=== PATIENT | female | born 1985 | race Caucasian/White ===

== ENCOUNTER 2021-07-12 02:53 | Outpatient (CLI) | payer MEDICAID, SELFPAY ==
[2021-07-14 16:17] LABS: c-ANCA Negative (Negative); p-ANCA Negative (Negative)
== END 2021-07-12 02:54 | disposition home or self-care (01) ==
LOC: LBO 02:53
PROVIDERS: PCP Family Medicine; Visit Provider Physician Assistant
DX: J34.89 Other specified disorders of nose and nasal sinuses (principal)
CPT/HCPCS: 36415; 86255

== ENCOUNTER 2021-08-26 07:26 | Outpatient (CLI) | payer MEDICAID, SELFPAY ==
--- OUTSIDE RECORDS SUMMARY | 2021-08-26 07:30 | XMS_ITS ---
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 Medications Name Status Start Date Stop Date ? ? amoxicillin 500 mg capsule Completed 02/08/201402/18 1 (one) Capsule: every 8 hours amoxicillin 875 mg-potassium Completed ? clavulanate 125 mg tablet azithromycin 250 mg tablet Completed ? 06/09 2 tablets day 1 followed by 1 tab on days 2 and 3. Bactrim DS 800 mg-160 mg tablet Completed 05/02/2012 05/12/2012 2 (two) Tablet: every 12 hours for 10 days Bactroban 2 % topical ointment Completed 05/02/2012 1 1 Ointment: 1 application by topical route every 12 hours cephalexin 500 mg capsule Completed ? 2020 1 Cap: QID for 7 days ciprofloxacin 250 mg tablet Completed ? 02/23 2 tabs now citalopram 10 mg tablet Completed 12/27/2006 12/28/19 07 1 (one) Tablet: Daily Depakote ER 250 mg tablet,extended release Completed 06/1506/15/2006 1 (one) Tab SR 24HR: bedtime Depo-Provera 150 mg/mL intramuscular syringe Completed ? 02/19/2018 Inject 1 mL every 3 months by intramuscular route. Dilantin Extended 100 mg capsule Completed 02/14/2006 02/21/2006 3 (three) Capsule: bedtime doxepin 10 mg capsule Completed ? 08/04/2021 Take 1 capsule every day by oral route at bedtime. fluoxetine 10 mg capsule Completed 11/09/2005 006 1 Capsule: daily Gardasil (PF) [id number]-92byp-20mcg/0.5mL intramuscular payne spension Completed 06/03/2007 07/02/2008 1 (one) vial: as directed hydrocodone 5 mg-acetaminophen Completed ? 0 02/14/2018 325 mg tablet ibuprofen 800 mg tablet Active 03/31/2021 Not avai lable Take 1 tablet 3 times a day by oral route for 10 days. levetiracetam Active ? Not available 500 mg BID lidocaine 4 % topical patch Active 03/31/2021 Not available Apply 1 patch every day by topical route as needed. lorazepam 0.5 mg tablet Completed 02/14/2006 02/15/20 06 1 (one) Tablet: every 8 hours medroxyprogesterone 150 mg/mL intramuscular suspension Active ? Not available Inject 1 mL every 3 months by intramuscular route. melatonin 10 mg tablet Active ? Not avail able Take 1 tablet every day by oral route at bedtime. Nasonex 50 mcg/actuation [place] Completed 02/28/2012 1 2 (two) spray(s): daily rovuvtzr-[id number]-pfmhkjgf Completed ? 03/24 3.5 mg/mL-10,000 unit/mL-0.1% eye drops ondansetron 4 mg Completed ? 02/19/2018 disintegrating tablet oxycodone 5 mg tablet Completed 03/31/2021 05/05/2021 Take 1 tablet every 6 hours by oral route as needed. pantoprazole 20 mg tablet,delayed release Completed 202005/05/2021 Take 1 tablet every day by oral route in the morning for 14 day s. penicillin V potassium 500 mg tablet Completed 04/01/2012 04/01/2012 1 Tablet: every six hours Percocet 5 mg-325 mg tablet Completed 04/18/200603/25 1-2 Tablet: every 4-6 hours as needed for pain permethrin 1 % topical liquid Completed 01/15/2014 1 (one) Lotion: apply to clean, damp lyman ir. Let sit for ten minutes then rinse. May repeat x1 in one week if needed. phenazopyridine 95 mg tablet Completed 03/31/202108/2021 2 tabs now ProAir HFA 90 mcg/actuation aerosol inhaler Active 04/2021 Not available INHALE 1-2 PUFFS (180 MCG) BY INHALATION ROUTE EVERY 4-6 HOURS NEEDED sertraline 25 mg tablet Completed 11/15/2007 06/03/20 08 1 (one) Tablet: Daily sumatriptan 50 mg tablet Active 03/31/2021 Not aditya ilable Take 1 tablet by oral route as directed. take one at onset of headache. Symbicort 160 mcg-4.5 Active ? Not availa ble mcg/actuation HFA aerosol inhaler benzonatate 100 mg capsule Active ? Not a vailable Topamax 50 mg tablet Active ? Not availab le Take 1 tablet twice a day by oral route for 30 days. topiramate 25 mg tablet Active 03/31/2021 Not avai lable Take 1 tablet every day by oral route in the evening. triamcinolone acetonide 0.1 % Completed ? topical cream TriNessa (28) 0.18 mg(7)/0.215 mg(7)/0.25 mg(7)-35 mcg table t Completed 11/09/2005 02/14/2006 1 Tablet: daily Vistaril 50 mg capsule Completed 06/03/2008 9 1 (one) Capsule: bid prn Vortex Holding Chamber Completed ? 8 Xopenex HFA 45 mcg/actuation aerosol inhaler Completed 07/201611/04/2015 2 (two) inhalation(s) 2 minutes apart: Every 6 -8 hours as need ed Zithromax 500 mg tablet Completed 02/15/2012 02/22/20 12 1 (one) Tablet: Daily, see below Zofran Active 03/31/2021 Not available as needed Notes: 06/13/21 verbal review Problems Name Status Onset Date Source ? Abdominal Pain Active 03/31/2021 ? Insomnia Active 04/04/2021 ? Obesity Unknown ? History Acute Bronchitis Unknown ? History Asthma Active ? ? Cough Unknown ? History Surveillance of [place] Contraception Unknown ? History Done Adult Health Examination Unknown ? History Gynecologic Examination Unknown ? History Evaluation Procedure Unknown ? History Procedure by Method Unknown ? History Umbilical Hernia Unknown ? History Procedures Date Name Performed by ? 07/25/2021 Colonoscopy Information not avai lable Notes: [facility], polyp removed, 5 year f/ u recommended 03/31/2021 Laparoscopy Diagnostic Information not a vailable Notes: lysis of adhesions 11/25/2020 Laparoscopic Ventral Hernia Repair (Surg ) Information not available Notes: lap ventral incisional hernia repair with mesh 03/14/2018 Hernia Repair Umbilical Information not available Notes: laparoscopic 10/20/2017 Appendectomy Information not avai lable 02/03/2007 Delivery Information not avai lable 09/29/2020 MRI, Brain, W/wo Contrast [facility] (Internal) [address], [place] [id number] (Work Place) 02/16/2021 NM, Hepatobiliary Scan, W/ CCK [facility] Radiology (Internal) [address] [place] [id number] (Work Place) Results Lab Results Date Name Specimen Result Interpretation Description Value Range Status Address ? 05/28/2021 CBC W/ BLD ? Wbc 6.1 10*3/uL 5.0-10.0 Final [place] Auto Diff 10*3/uL [facility] L ab (Internal) : [address] t ? ? BLD ? Rbc 4.56 10*6/uL 4.10-5.30 Final N orth 10*6/uL [facility] L ab (Internal) : [address] t ? ? BLD ? Hgb 14.0 g/dL 12.0-16.0 Final Nort h g/dL [facility] L ab (Internal) : [address] t ? ? BLD ? Hct 43.0 % 37.0-47.0 Final [facility] L ab (Internal) : [address] t ? ? BLD ? Mcv 94.3 fL 80.0-96.0 Final [facility] L ab (Internal) : [address] t ? ? BLD ? Mch 30.7 pg 26.0-32.0 Final [facility] L ab (Internal) : [address] t ? ? BLD ? Mchc 32.6 g/dL 31.0-35.0 Final Nort h g/dL [facility] (Internal[facility] : [address] t ? ? BLD ? Rdw 13.6 % 11.5-14.5 Final [facility] L ab (Internal) : [address] t ? ? BLD ? Plt 249 10*3/uL 130-450 Final Nort h 10*3/uL [facility] L ab (Internal) : [address] ? ? BLD ? Anc 3.48 10*3/uL ? Final Nort h [facility] L ab (Internal) : [address] ? ? BLD ? Nlr 1.80 0.00-3.20 Final [facility] L ab (Internal) : [address] ? ? BLD ? Neutro 57.3 % 40.0-75.0 Final [facility] L ab (Internal) : [address] t ? ? BLD ? Lymph 31.8 % 20.0-50.0 Final [facility] L ab (Internal) : [address] ? ? BLD ? [place] 8.9 % 2.0-10.0 Final [facility] L ab (Internal) : [address] t ? ? BLD ? Eos 1.2 % 1.0-6.0 % Final [facility] L ab (Internal) : [address] t ? ? BLD ? Baso 0.5 % 0.0-1.0 % Final [facility] L ab (Internal) : [address] ? ? BLD ? Ig 0.3 % 0.0-0.9 % Final [facility] L ab (Internal) : [address] t 05/28/2021 CMP, S ? g/r 101 mg/dL 74-106 Final Nor th Serum or mg/dL [facility] L ab (Internal) : [address] t ? ? S ? Bun 11 mg/dL 7-17 Final North mg/dL [facility] L ab (Internal) : [address] t ? ? S ? Crea 0.80 mg/dL 0.52-1.04 Final Nor th mg/dL [facility] L ab (Internal) : [address] t ? ? S ? Ca 9.1 mg/dL 8.4-10.2 Final [place] mg/dL [facility] (Internal) : [address] t ? ? S ? Na 142 mmol/L 137-145 Final North mmol/L [facility] L ab (Internal) : [address] t ? ? S ? K 3.6 mmol/L 3.5-5.1 Final [place] mmol/L [facility] L ab (Internal) : [address] t ? ? S ? Cl 106 mmol/L 98-107 Final [place] mmol/L [facility] L ab (Internal) : [address] ? ? S ? Tco2 25.0 mmol/L 22.0-30.0 Final No rth mmol/L [facility] (Internal) : [address] t ? ? S ? Tp 7.6 g/dL 6.3-8.2 Final [place] g/dL [facility] L ab (Internal) : [address] t ? ? S ? Alb 4.3 g/dL 3.5-5.0 Final [place] g/dL [facility] L ab (Internal) : [address] t ? ? S ? Tbil 0.3 mg/dL 0.2-1.3 Final North mg/dL [facility] L ab (Internal) : [address] t ? ? S ? Alp 72 U/L 50-136 Final [place] U/L [facility] L ab (Internal) : [address] ? ? S ? Alt 24 U/L 9-52 U/L Final [place] (Sgpt) [facility] L ab (Internal) : [address] ? ? S ? Ast 28 U/L 14-36 U/L Final [place] (Sgot) [facility] L ab (Internal) : [address] t 04/08/2021 CBC W/ BLD ? Wbc 5.4 10*3/uL 5.0-10.0 Final [place] Auto Diff 10*3/uL [facility] (Internal[facility] : [address] t ? ? BLD ? Rbc 4.30 10*6/uL 4.10-5.30 Final N orth 10*6/uL [facility] Hospital L ab (Internal) : [address] ? ? BLD ? Hgb 13.3 g/dL 12.0-16.0 Final Nort h g/dL [facility] L ab (Internal) : [address] ? ? BLD ? Hct 40.7 % 37.0-47.0 Final [place] [facility] L ab (Internal) : [address] ? ? BLD ? Mcv 94.7 fL 80.0-96.0 Final [facility] L ab (Internal) : [address] ? ? BLD ? Mch 30.9 pg 26.0-32.0 Final [place] pg [facility] L ab (Internal) : [address] ? ? BLD ? Mchc 32.7 g/dL 31.0-35.0 Final Nort h g/dL [facility] L ab (Internal) : [address] ? ? BLD ? Rdw 13.5 % 11.5-14.5 Final [facility] Hospital L ab (Internal) : [address] ? ? BLD ? Plt 218 10*3/uL 130-450 Final Nort h 10*3/uL [facility] L ab (Internal) : [address] ? ? BLD ? Anc 3.33 10*3/uL ? Final Nort h [facility] L ab (Internal) : [address] ? ? BLD ? Nlr 2.02 0.00-3.20 Final [facility] L ab (Internal) : [address] ? ? BLD ? Neutro 61.3 % 40.0-75.0 Final [facility] L ab (Internal) : [address] ? ? BLD ? Lymph 30.4 % 20.0-50.0 Final [facility] L ab (Internal) : [address] ? ? BLD ? [place] 6.8 % 2.0-10.0 Final [facility] L ab (Internal) : [address] ? ? BLD Low Eos 0.7 % 1.0-6.0 % Final [facility] L ab (Internal) : [address] ? ? BLD ? Baso 0.6 % 0.0-1.0 % Final [facility] L ab (Internal) : [address] ? ? BLD ? Ig 0.2 % 0.0-0.9 % Final [facility] L ab (Internal) : [address] 04/08/2021 D-dimer, PLASMA ? Dimq 0.33 mg/L 0.00-0.50 Final [place] Quant, mg/L [facility] L ab (Internal) : [address] 04/08/2021 CMP, S ? g/r 97 mg/dL 74-106 Final Nort h Serum or mg/dL [facility] L ab (Internal) : [address] t ? ? S ? Bun 12 mg/dL 7-17 Final [place] mg/dL [facility] L ab (Internal) : [address] t ? ? S ? Crea 0.80 mg/dL 0.52-1.04 Final Nor th mg/dL [facility] L ab (Internal) : [address] t ? ? S ? Ca 9.5 mg/dL 8.4-10.2 Final [place] mg/dL [facility] L ab (Internal) : [address] t ? ? S ? Na 143 mmol/L 137-145 Final [place] mmol/L [facility] L ab (Internal) : [address] t ? ? S ? K 3.7 mmol/L 3.5-5.1 Final [place] mmol/L [facility] L ab (Internal) : [address] t ? ? S High Cl 111 mmol/L 98-107 Final [place] mmol/L [facility] L ab (Internal) : [address] ? ? S Low Tco2 21.0 mmol/L 22.0-30.0 Final No rth mmol/L [facility] L ab (Internal) : [address] ? ? S ? Tp 7.6 g/dL 6.3-8.2 Final [place] g/dL [facility] (Internal) : [address] t ? ? S ? Alb 4.4 g/dL 3.5-5.0 Final [place] g/dL [facility] L ab (Internal) : [address] t ? ? S ? Tbil 0.5 mg/dL 0.2-1.3 Final [place] mg/dL [facility] L ab (Internal) : [address] t ? ? S ? Alp 59 U/L 50-136 Final [place] U/L [facility] L ab (Internal) : [address] t ? ? S ? Alt 18 U/L 9-52 U/L Final [place] (Sgpt) [facility] L ab (Internal) : [address] t ? ? S ? Ast 27 U/L 14-36 U/L Final [place] (Sgot) [facility] L ab (Internal) : [address] 04/08/2021 Troponin S ? Trop <0.06 NG/mL 0.00-0.06 Fin al North I, Serum NG/mL [facility] Hosp[facility] l Lab (Internal) : [address] 04/08/2021 EKG Done ? No ? ? ? Nort h by ED observat [facility] L ab recorded (Interna l): . [address] 04/08/2021 EKG Done ? No ? ? ? Nort h by ED [facility] L ab recorded (Interna l): . [address] 04/04/2021 Lipid S ? Chol 181 mg/dL 50-200 Final Nor th Panel, mg/dL [facility] Serum Hospital L ab (Internal) : [address] t ? ? S ? Trig 124 mg/dL 10-150 Final [place] mg/dL [facility] L ab (Internal) : [address] ? ? S ? Hdl 44 mg/dL 40-60 Final [place] mg/dL [facility] L ab (Internal) : [address] ? ? S ? Ldl 112 mg/dL 0-130 Final [place] mg/dL [facility] Hospital L ab (Internal) : [address] 03/31/2021 Type + BLD ? Abo A ? Final [facility], [facility] Blood Hospital L ab (Internal) : [address] ? ? BLD ? Rh positive ? Final [facility] L ab (Internal) : [address] ? ? BLD ? Ab Scrn negative negative Final Nort [facility] L ab (Internal) : [address] 03/15/2021 Rapid THRT ? Final microbiology ? Final [place] Strep results [facility] Lab Throat (Internal) : [address] 03/02/2021 Cytology, TISS ? Report (see below) ? Phyllis l [place] Non-gynec Country ological, Hospita l Lab Unspecifi (Overhauler al): ed [address] Spec[address] [place] [address] orestuardo 03/02/2021 Urinalysi Urine ? Color Yellow ? ? P_u rology: s, clean [address] Medical Dipstick, [address], [facility] ? ? Urine ? Appeara Clear ? ? P_urolog y: clean nce 41 [employer] [facility] ? ? Urine ? Glucose Normal ? ? P_urolog y: clean [facility] ? ? Urine ? Bilirub Negative ? ? P_urol ogy: clean in [address] [employer] [facility] ? ? Urine ? Ketones Negative ? ? P_urol ogy: clean [facility] ? ? Urine ? Specifi 1.025 ? ? P_urolog y: clean c 41 Medical catch [place] [facility] ? ? Urine ? Blood Trace ? ? P_urology: clean [facility] ? ? Urine ? Ph 6.5 ? ? P_urology: clean [facility] ? ? Urine ? Protein Trace ? ? P_urolog y: clean 41 Medical [place], [place] ? ? Urine ? Urobili 4 ? ? P_urolog y: clean nogen 41 [facility] ? ? Urine ? Nitrite negative ? ? P_urol ogy: clean [facility] ? ? Urine ? Leukocy Negative ? ? P_urol ogy: clean te 41 Medical catch [place] [facility] 01/31/2021 Bladder ? Date 01/31/21 8:11 ? ? P_urology: Scan and Time 41 Medic al (PROC) [facility] [address], [place] ? ? ? Amount 102 ml ? ? P_urology : in [address] [facility] [address], [place] 01/31/2021 Urinalysi Urine ? Color Tatianna ? ? P_u rology: s, clean [address], catch [address], Micro [place] ? ? Urine ? Appeara Slightly ? ? P_urol ogy: clean nce Cloudy [address] [facility] [address], [place] ? ? Urine ? Glucose Normal ? ? P_urolog y: clean [address] [facility] [address], [place] ? ? Urine ? Bilirub Negative ? ? P_urol ogy: clean in [address] [facility] [address], [place] ? ? Urine ? Ketones Negative ? ? P_urol ogy: clean [address] [facility] [address], [place] ? ? Urine ? Specifi 1.020 ? ? P_urolog y: clean c 41 Medical catch [place] [facility] [address], [place] ? ? Urine ? Blood Negative ? ? P_urolog y: clean [address] [facility] [address], [place] ? ? Urine ? Ph 7.0 ? ? P_urology: clean [address] [facility] [address], [place] ? ? Urine ? Protein Negative ? ? P_urol ogy: clean [address] [facility] [address], [place] ? ? Urine ? Urobili 1 ? ? P_urolog y: clean nogen [address] [facility] [address], [place] ? ? Urine ? Nitrite negative ? ? P_urol ogy: clean [address] [facility] [address], [place] ? ? Urine ? Leukocy Small ? ? P_urolog y: clean te [address], [place] 01/27/2021 Urinalysi UR ? UA-colo yellow pale Final N orth s, r yellow Country Dipstick, Hospita l Lab Reflex (Internal) : Micro [address] ? ? UR ? UA-appe clear clear Final [facility] ab (Internal) : [address] ? ? UR ? UA-spec 1.020 1.003-1.0 Final [place] Grav 35 [facility] L ab (Internal) : [address] ? ? UR ? UA-pH 6.5 [pH] 4.6-8.0 Final [place] [pH] [facility] ab (Internal) : [address] ? ? UR ABNORM UA-leuk small negative Final [place] AL Est [facility] ab (Internal) : [address] ? ? UR ? UA-nitr negative negative Final Nort h ite [facility] ab (Internal) : [address] ? ? UR ? UA-prot negative negative Final Nort h [facility] ab (Internal) : [address] ? ? UR ? UA-gluc negative negative Final Nort h [facility] ab (Internal) : [address] ? ? UR ? UA-keto negative negative Final Nort h ne [facility] ab (Internal) : [address] ? ? UR ? UA-urob normal normal Final [facility] ab (Internal) : [address] ? ? UR ? UA-bili negative negative Final Nort [facility] ab (Internal) : [address] ? ? UR ABNORM UA-bloo trace negative Final [facility] ab (Internal) : [address] 01/27/2021 Urinalysi UR ABNORM UA-WBC 5-10 [hpf] 0-3 [hpf] Fi nal North s, [facility] Hospita l Lab ic (Internal) : [address] ? ? UR ABNORM UA-RBC 5-10 [hpf] 0-2 [hpf] Final No rth [facility] ab (Internal) : [address] ? ? UR ? UA-bact rare [hpf] none seen Final N orth eria [hpf] [facility] ab (Internal) : [address] ? ? UR ? UA-epit rare [hpf] none seen Final N fredy helial [hpf] [facility] ab (Internal) : [address] ? ? UR ABNORM UA-mucu rare [hpf] none seen Final N fredy AL s [hpf] [facility] ab (Internal) : [address] 01/27/2021 Culture UR ? Final microbiology ? Final [place] ([place] results Country Count), Hospital Lab Urine (Internal) : [address] 01/05/2021 Urinalysi UR ? UA-colo yellow pale Final N orth s, r yellow [facility] Dipstick, Hospita l Lab Reflex (Internal) : Micro [address] t ? ? UR ? UA-appe clear clear Final [facility] ab (Internal) : [address] ? ? UR ? UA-spec >=1.030 1.003-1.0 Final Nort h Grav 35 [facility] ab (Internal) : [address] ? ? UR ? UA-pH 5.5 [pH] 4.6-8.0 Final [place] [pH] [facility] ab (Internal) : [address] ? ? UR ? UA-leuk negative negative Final Nort h [facility] ab (Internal) : [address] ? ? UR ? UA-nitr negative negative Final Nort h ite [facility] ab (Internal) : [address] ? ? UR ? UA-prot negative negative Final Nort [facility] ab (Internal) : [address] ? ? UR ? UA-gluc negative negative [facility] ab (Internal) : [address] ? ? UR ABNORM UA-keto trace negative Final [facility] ab (Internal) : [address] ? ? UR ? UA-urob normal normal Final [facility] ab (Internal) : [address] ? ? UR ? UA-bili negative negative Final Nort [facility] ab (Internal) : [address] ? ? UR ABNORM UA-bloo trace negative Final [facility] ab (Internal) : [address] 01/05/2021 UR ? Hcgu negative negative Final [facility], [facility] Hospital L ab (Internal) : [address] 01/05/2021 Urinalysi UR ABNORM UA-WBC 5-10 [hpf] 0-3 [hpf] Fi nal [place], [place] [facility]osp[facility] Lab ic (Internal) : [address] ? ? UR ? UA-RBC 0-2 [hpf] 0-2 [hpf] Final [facility] ab (Internal) : [address] ? ? UR ABNORM UA-bact moderate none seen Final Nor th AL eria [hpf] [hpf] [facility] ab (Internal) : [address] ? ? UR ABNORM UA-epit few [hpf] none seen Final No rth AL helial [hpf] [facility] ab (Internal) : [address] [place] ? ? UR ABNORM UA-mucu few [hpf] none seen Final No rth AL s [hpf] [facility] ab (Internal) : [address] ? ? UR ? Hyaline rare [hpf] ? Final Nort h [facility] ab (Internal) : [address] 01/05/2021 Culture UR ? Final microbiology ? Final [place] ([place] results Country [facility]), Hospital Lab Urine (Internal) : [address] 12/27/2020 Urinalysi UR ? UA-colo yellow pale Final N orth s, r yellow Country Dipstick, Hospita l Lab Reflex (Internal) : Micro [address] ? ? UR ABNORM UA-appe hazy clear Final [facility] ab (Internal) : [address] ? ? UR ? UA-spec >=1.030 1.003-1.0 Final Nort h Grav 35 [facility] ab (Internal) : [address] ? ? UR ? UA-pH 5.5 [pH] 4.6-8.0 Final [place] [pH] [facility] ab (Internal) : [address] t ? ? UR ABNORM UA-leuk trace negative Final [facility] ab (Internal) : [address] ? ? UR ? UA-nitr negative negative Final Nort h ite [facility] ab (Internal) : [address] t ? ? UR ? UA-prot negative negative Final Nort h [facility] ab (Internal) : [address] ? ? UR ? UA-gluc trace negative Final [facility] ab (Internal) : [address] t ? ? UR ? UA-keto negative negative Final Nort h [facility] ab (Internal) : [address] t ? ? UR ? UA-urob normal normal Final [facility] ab (Internal) : [address] t ? ? UR ? UA-bili negative negative Final Nort [facility] ab (Internal) : [address] t ? ? UR ABNORM UA-bloo small negative Final [facility] ab (Internal) : [address] t 12/27/2020 Urinalysi UR ABNORM UA-WBC 10-25 [hpf] 0-3 [hpf] F inal [place] s, [facility] Lab ic (Internal) : [address] t ? ? UR ABNORM UA-RBC 5-10 [hpf] 0-2 [hpf] Final No rth [facility] ab (Internal) : [address] t ? ? UR ? UA-bact rare [hpf] none seen Final N orth eria [hpf] [facility] ab (Internal) : [address] t ? ? UR ? UA-epit rare [hpf] none seen Final N orth helial [hpf] [facility] ab (Internal) : [address] t ? ? UR ABNORM UA-mucu moderate none seen Final Nor [facility] [hpf] [hpf] [facility] ab (Internal) : [address] 12/27/2020 CBC W/ BLD ? Wbc 5.5 10*3/uL 5.0-10.0 Final [place] Auto Diff 10*3/uL [facility] ab (Internal) : [address] t ? ? BLD ? Rbc 4.44 10*6/uL 4.10-5.30 Final N orth 10*6/uL [facility] ab (Internal) : [address] t ? ? BLD ? Hgb 13.4 g/dL 12.0-16.0 Final Nort h g/dL [facility] ab (Internal) : [address], [place] ? ? BLD ? Hct 41.1 % 37.0-47.0 Final [facility] ab (Internal) : [address] ? ? BLD ? Mcv 92.6 fL 80.0-96.0 Final [facility] L ab (Internal) : [address] ? ? BLD ? Mch 30.2 pg 26.0-32.0 Final [facility] ab (Internal) : [address] , [place] ? ? BLD ? Mchc 32.6 g/dL 31.0-35.0 [facility] ab (Internal) : [address] ? ? BLD ? Rdw 13.6 % 11.5-14.5 Final [facility] L ab (Internal) : [address] ? ? BLD ? Plt 265 10*3/uL 130-450 Final Nort h 10*3/uL [facility] L ab (Internal) : [address] ? ? BLD ? Anc 2.73 10*3/uL ? Final Nort h [facility] Hospital L ab (Internal) : [address] ? ? BLD ? Nlr 1.29 0.00-3.20 Final [facility] L ab (Internal) : [address] ? ? BLD ? Neutro 49.5 % 40.0-75.0 Final [facility] L ab (Internal) : [address] ? ? BLD ? Lymph 38.5 % 20.0-50.0 Final [facility] L ab (Internal) : [address] [place] ? ? BLD ? [place] 8.7 % 2.0-10.0 Final [facility] L ab (Internal) : [address] ? ? BLD ? Eos 2.4 % 1.0-6.0 % Final [facility] L ab (Internal) : [address] [place] ? ? BLD ? Baso 0.7 % 0.0-1.0 % Final [facility] ab (Internal) : [address] [place] ? ? BLD ? Ig 0.2 % 0.0-0.9 % Final [facility] ab (Internal) : [address] 12/27/2020 UR ? Hcgu negative negative Final [place] Test, [facility] Urine Hospital L ab (Internal) : [address] 12/27/2020 Culture UR ? Final microbiology ? Final [place] ([place] results Country Count), Hospital Lab Urine (Internal) : [address] 12/27/2020 CMP, S High g/r 110 mg/dL 74-106 Final Nor th Serum or mg/dL [facility] Plasma Hospital L ab (Internal) : [address] t ? ? S ? Bun 16 mg/dL 7-17 Final North mg/dL [facility] ab (Internal) : [address] t ? ? S ? Crea 0.70 mg/dL 0.52-1.04 Final Nor th mg/dL [facility] L ab (Internal) : [address] t ? ? S ? Ca 8.8 mg/dL 8.4-10.2 Final North mg/dL [facility] Hospital L ab (Internal) : [address] t ? ? S ? Na 141 mmol/L 137-145 Final [place] mmol/L [facility] L ab (Internal) : [address] t ? ? S ? K 3.8 mmol/L 3.5-5.1 Final [place] mmol/L [facility] L ab (Internal) : [address] t ? ? S High Cl 109 mmol/L 98-107 Final [place] mmol/L [facility] L ab (Internal) : [address] t ? ? S Low Tco2 20.0 mmol/L 22.0-30.0 Final No rth mmol/L [facility] L ab (Internal) : [address] t ? ? S ? Tp 7.2 g/dL 6.3-8.2 Final North g/dL [facility] L ab (Internal) : [address] t ? ? S ? Alb 4.2 g/dL 3.5-5.0 Final North g/dL [facility] L ab (Internal) : [address] t ? ? S ? Tbil 0.3 mg/dL 0.2-1.3 Final [place] mg/dL [facility] L ab (Internal) : [address] t ? ? S ? Alp 63 U/L 50-136 Final [place] U/L [facility] L ab (Internal) : [address] t ? ? S ? Alt 16 U/L 9-52 U/L Final [place] (Sgpt) [facility] ab (Internal) : [address] t ? ? S ? Ast 23 U/L 14-36 U/L Final [place] (Sgot) [facility] ab (Internal) : [address] t 12/27/2020 CRP, High S ? Rcrp 0.10 mg/dL 0.10-0.30 Fin al [place] Sensitivi mg/dL [facility] ty, Serum Hospita l Lab or Plasma (Overhauler al): [address] t 12/09/2020 CBC W/ BLD ? Wbc 7.2 10*3/uL 5.0-10.0 Final [place] Auto Diff 10*3/uL [facility] Hospital L ab (Internal) : [address] t ? ? BLD ? Rbc 4.48 10*6/uL 4.10-5.30 Final N orth 10*6/uL [facility] Hospital L ab (Internal) : [address] t ? ? BLD ? Hgb 13.4 g/dL 12.0-16.0 Final Nort h g/dL [facility] L ab (Internal) : [address] t ? ? BLD ? Hct 41.1 % 37.0-47.0 Final [place] % [facility] L ab (Internal) : [address] t ? ? BLD ? Mcv 91.7 fL 80.0-96.0 Final [facility] L ab (Internal) : [address] t ? ? BLD ? Mch 29.9 pg 26.0-32.0 Final [place] pg [facility] Hospital L ab (Internal) : [address] t ? ? BLD ? Mchc 32.6 g/dL 31.0-35.0 Final Nort h g/dL [facility] Hospital L ab (Internal) : [address], [place] ? ? BLD ? Rdw 13.3 % 11.5-14.5 Final [facility] L ab (Internal) : [address] ? ? BLD ? Plt 275 10*3/uL 130-450 Final Nort h 10*3/uL [facility] Hospital L ab (Internal) : [address] t ? ? BLD ? Anc 4.75 10*3/uL ? Final Nort h [facility] Hospital L ab (Internal) : [address] ? ? BLD ? Nlr 2.68 0.00-3.20 Final [facility] L ab (Internal) : [address] ? ? BLD ? Neutro 65.8 % 40.0-75.0 Final [facility] L ab (Internal) : [address] ? ? BLD ? Lymph 24.4 % 20.0-50.0 Final [facility] L ab (Internal) : [address] ? ? BLD ? [place] 8.1 % 2.0-10.0 Final [facility] L ab (Internal) : [address] ? ? BLD ? Eos 1.2 % 1.0-6.0 % Final [facility] L ab (Internal) : [address] ? ? BLD ? Baso 0.4 % 0.0-1.0 % Final [facility] L ab (Internal) : [address] t ? ? BLD ? Ig 0.1 % 0.0-0.9 % Final [facility] L ab (Internal) : [address] t 12/09/2020 BMP, S ? g/r 99 mg/dL 74-106 Final Nort h Serum or mg/dL [facility] Plasma Hospital L ab (Internal) : [address] t ? ? S ? Bun 15 mg/dL 7-17 Final [place] mg/dL [facility] Hospital L ab (Internal) : [address] t ? ? S ? Crea 0.70 mg/dL 0.52-1.04 Final Nor th mg/dL [facility] Hospital L ab (Internal) : [address] t ? ? S ? Ca 9.4 mg/dL 8.4-10.2 Final [place] mg/dL [facility] Hospital L ab (Internal) : [address] t ? ? S ? Na 142 mmol/L 137-145 Final [place] mmol/L [facility] Hospital L ab (Internal) : [address] t ? ? S ? K 4.1 mmol/L 3.5-5.1 Final [place] mmol/L [facility] Hospital L ab (Internal) : [address] t ? ? S ? Cl 104 mmol/L 98-107 Final [place] mmol/L [facility] L ab (Internal) : [address] t ? ? S ? Tco2 27.0 mmol/L 22.0-30.0 Final No rth mmol/L [facility] Hospital L ab (Internal) : [address] 11/25/2020 Type + BLD ? Abo A ? Final [facility] L ab (Internal) : [address] ? ? BLD ? Rh positive ? Final [facility] ab (Internal) : [address] ? ? BLD ? Ab Scrn negative negative Final Nort [facility] L ab (Internal) : [address] 04/13/2020 SARS CoV SWAB ? 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 ? SWAB ? Perform the broad ? Final [facility] Hospital L ab (Internal) : [address] 09/05/2019 Urinalysi UR - UA-colo pale yellow pale Fin al [place] s, r yellow Country Dipstick, Hospita l Lab Reflex (Internal) : Micro [address] t ? ? UR - UA-appe clear clear Final [facility] (Internal) : [address] ? ? UR - UA-spec 1.015 1.003-1.0 Final [place] Grav 35 [facility] Hospital L ab (Internal) : [address] t ? ? UR - UA-pH 5.5 [pH] 4.6-8.0 Final [place] [pH] [facility] ab (Internal) : [address] t ? ? UR - UA-leuk negative negative Final Nort h Est [facility] L ab (Internal) : [address] t ? ? UR - UA-nitr negative negative Final Nort h ite [facility] L ab (Internal) : [address] t ? ? UR - UA-prot negative negative Final Nort h [facility] L ab (Internal) : [address] ? ? UR - UA-gluc negative negative Final Nort h [facility] ab (Internal) : [address] ? ? UR - UA-keto negative negative Final Nort h ne [facility] ab (Internal) : [address] t ? ? UR - UA-urob normal normal Final [facility] ab (Internal) : [address] t ? ? UR - UA-bili negative negative Final [facility] ab (Internal) : [address] t ? ? UR ABNORM UA-bloo large negative Final [facility] ab (Internal) : [address] t 09/05/2019 Urinalysi UR - UA-WBC 0-3 [hpf] 0-3 [hpf] Fin al [place] s, [facility] Lab ic (Internal) : [address] t ? ? UR ABNORM UA-RBC 10-25 [hpf] 0-2 [hpf] Final N orth AL [facility] ab (Internal) : [address] t ? ? UR - UA-bact rare [hpf] none seen Final N fredy delcid [hpf] [facility] ab (Internal) : [address] t ? ? UR - UA-epit rare [hpf] none seen Final N fredy simon [hpf] [facility] ab (Internal) : [address] t ? ? UR - UA-mucu none seen none seen Final No rth s [hpf] [hpf] [facility] ab (Internal) : [address] 09/05/2019 CBC W/ BLD - Wbc 6.4 10*3/uL 5.0-10.0 Final [place] Diff 10*3/uL [facility] Hospital L ab (Internal) : [address] ? ? BLD - Rbc 4.30 10*6/uL 4.10-5.30 Final N orth 10*6/uL [facility] ab (Internal) : [address] ? ? BLD - Hgb 13.7 g/dL 12.0-16.0 Final Nort h g/dL [facility] ab (Internal) : [address] ? ? BLD - Hct 39.9 % 37.0-47.0 Final North % [facility] ab (Internal) : [address] ? ? BLD - Mcv 92.8 fL 80.0-96.0 Final North fL [facility] ab (Internal) : [address] ? ? BLD - Mch 31.9 pg 26.0-32.0 Final North pg [facility] ab (Internal) : [address] ? ? BLD - Mchc 34.3 g/dL 31.0-35.0 Final Nort h g/dL [facility] ab (Internal) : [address] ? ? BLD - Rdw 13.3 % 11.5-14.5 Final North % [facility] Hospital L ab (Internal) : [address] ? ? BLD - Plt 224 10*3/uL 130-450 Final Nort h 10*3/uL [facility] ab (Internal) : [address] ? ? BLD - Anc 4.37 10*3/uL ? Final Nort h [facility] ab (Internal) : [address] ? ? BLD - Neutro 68.7 % 40.0-75.0 Final North % [facility] Hospital L ab (Internal) : [address] ? ? BLD - Lymph 24.1 % 20.0-50.0 Final North [facility] Hospital L ab (Internal) : [address] ? ? BLD - [place] 6.0 % 2.0-10.0 Final North [facility] Hospital L ab (Internal) : [address] ? ? BLD Low Eos 0.3 % 1.0-6.0 % Final [facility] L ab (Internal) : [address] t ? ? BLD - Baso 0.6 % 0.0-1.0 % Final [facility] L ab (Internal) : [address] t ? ? BLD - Ig 0.3 % 0.0-0.9 % Final [facility] L ab (Internal) : [address] t 09/05/2019 CMP, S - g/r 91 mg/dL 74-106 Final Nort h Serum or mg/dL [facility] Plasma Hospital L ab (Internal) : [address] t ? ? S - Bun 10 mg/dL 7-17 Final North mg/dL [facility] L ab (Internal) : [address] t ? ? S - Crea 0.60 mg/dL 0.52-1.04 Final Nor th mg/dL [facility] Hospital L ab (Internal) : [address] ? ? S - Ca 9.2 mg/dL 8.4-10.2 Final [place] mg/dL [facility] ab (Internal) : [address] ? ? S - Na 141 mmol/L 137-145 Final [place] mmol/L [facility] Hospital L ab (Internal) : [address] ? ? S - K 3.7 mmol/L 3.5-5.1 Final [place] mmol/L [facility] Hospital L ab (Internal) : [address] t ? ? S High Cl 108 mmol/L 98-107 Final [place] mmol/L [facility] Hospital L ab (Internal) : [address] ? ? S - Tco2 23.0 mmol/L 22.0-30.0 Final No rth mmol/L [facility] ab (Internal) : [address] t ? ? S - Tp 7.5 g/dL 6.3-8.2 Final [place] g/dL [facility] ab (Internal) : [address] t ? ? S - Alb 4.1 g/dL 3.5-5.0 Final [place] g/dL [facility] ab (Internal) : [address], [place] ? ? S - Tbil 0.5 mg/dL 0.2-1.3 Final [place] mg/dL [facility] Hospital L ab (Internal) : [address] ? ? S - Alp 72 U/L 50-136 Final [place] U/L [facility] Hospital L ab (Internal) : [address] ? ? S - Alt 32 U/L 9-52 U/L Final [place] (Sgpt) [facility] L ab (Internal) : [address] ? ? S - Ast 26 U/L 14-36 U/L Final [place] (Sgot) [facility] Hospital L ab (Internal) : [address] 04/10/2019 Streptoco THRT - Final microbiology ? Phyllis l [place] ccus results [facility] Group a, Hospital Lab Culture, (Interna l): Throat [address] 04/10/2019 Rapid ? Strep negative ? ? P_nc Primary Strep Care [facility]: 186 Throat Medical [facility] 04/08/2019 Rapid THRT - Final microbiology ? Final [place] Strep results [facility], Hospital Lab Throat (Internal) : [address] 12/12/2018 Lipid S - Chol 189 mg/dL 50-200 Final Nor th Panel, mg/dL [facility] L ab (Internal) : [address] ? ? S - Trig 113 mg/dL 10-150 Final [place] mg/dL [facility] Hospital L ab (Internal) : [address] ? ? S - Hdl 55 mg/dL 40-60 Final [place] mg/dL [facility] Hospital L ab (Internal) : [address] ? ? S - Ldl 111 mg/dL 0-130 Final [place] mg/dL [facility] Hospital L ab (Internal) : [address] 02/14/2018 Pap Test, MISC - Hpv see report ? Final [place] Thinprep, [facility] Cervical Hospital Lab (Internal) : [address] ? ? MISC - Pap see report ? Final [facility] Hospital L ab (Internal) : [address] ? ? MISC - Report (added) ? Corrected [place] results Country below Hospital L ab (Internal) : [address] 11/11/2017 Venipunct BLD ? Venpn* ? ? Final No rth ure [facility] L ab (Internal) : [address] 11/11/2017 Culture, UR ? Final microbiology ? Final [place] Urine results [facility] ab (Internal) : [address] 11/11/2017 Urinalysi UR ABNORM UA-WBC 5-10 [hpf] 0-3 [hpf] Fi nal [place] s, [place] [facility] Microscop Hospita l Lab ic (Internal) : [address] t ? ? UR ABNORM UA-RBC 5-10 [hpf] 0-2 [hpf] Final No rth AL [facility] L ab (Internal) : [address] t ? ? UR ABNORM UA-bact few [hpf] none seen Final No rth AL eria [hpf] [facility] ab (Internal) : [address] t ? ? UR ABNORM UA-epit few [hpf] none seen Final No rth AL helial [hpf] [facility] ab (Internal) : [address] t ? ? UR ABNORM UA-mucu many [hpf] none seen Final N orth AL s [hpf] [facility] ab (Internal) : [address] 11/11/2017 Urinalysi UR ? UA-colo yellow pale Final N orth s, r yellow [facility] Dipstick, Hospita l Lab Reflex (Internal) : Micro [address] t ? ? UR ABNORM UA-appe hazy clear Final [facility] ab (Internal) : [address] t ? ? UR ? UA-spec >=1.030 1.003-1.0 Final Nort h Grav 35 [facility] L ab (Internal) : [address] t ? ? UR ? UA-pH 5.5 [pH] 4.6-8.0 Final North [pH] [facility] ab (Internal) : [address] t ? ? UR ABNORM UA-leuk trace negative Final North AL Est [facility] L ab (Internal) : [address] t ? ? UR ? UA-nitr negative negative Final Nort h ite [facility] Hospital L ab (Internal) : [address] t ? ? UR ? UA-prot negative negative Final Nort h [facility] Hospital L ab (Internal) : [address] t ? ? UR ? UA-gluc negative negative Final Nort h [facility] L ab (Internal) : [address] t ? ? UR ? UA-keto negative negative Final Nort h ne [facility] L ab (Internal) : [address] t ? ? UR ? UA-urob normal normal Final [facility] L ab (Internal) : [address] t ? ? UR ? UA-bili negative negative Final Nort h [facility] L ab (Internal) : [address] t ? ? UR ABNORM UA-bloo small negative Final [place] AL d [facility] ab (Internal) : [address] 11/11/2017 Influenza NASAL ? Final microbiology ? Phyllis l [place] (A+B) Ag, results Countr y Qual, Hospital L ab Rapid, (Internal) : Nose [address] t 11/11/2017 Lipase, S ? Lip 50 U/L 23-300 Final [place] Serum or U/L [facility] Plasma Hospital L ab (Internal) : [address] t 11/11/2017 CMP, S ? g/r 98 mg/dL 74-106 Final Nort h Serum or mg/dL [facility] Hospital L ab (Internal) : [address] t ? ? S ? Bun 7 mg/dL 7-17 Final [place] mg/dL [facility] Hospital L ab (Internal) : [address] t ? ? S ? Crea 0.70 mg/dL 0.52-1.04 Final Nor th mg/dL [facility] Hospital L ab (Internal) : [address] t ? ? S ? Ca 9.1 mg/dL 8.4-10.2 Final [place] mg/dL [facility] L ab (Internal) : [address] t ? ? S ? Na 142 mmol/L 137-145 Final [place] mmol/L [facility] L ab (Internal) : [address] t ? ? S ? K 3.9 mmol/L 3.5-5.1 Final [place] mmol/L [facility] L ab (Internal) : [address] t ? ? S ? Cl 107 mmol/L 98-107 Final [place] mmol/L [facility] L ab (Internal) : [address] t ? ? S ? Tco2 22.0 mmol/L 22.0-30.0 Final No rth mmol/L [facility] L ab (Internal) : [address] t ? ? S ? Tp 7.1 g/dL 6.3-8.2 Final [place] g/dL [facility] L ab (Internal) : [address] t ? ? S ? Alb 4.0 g/dL 3.5-5.0 Final [place] g/dL [facility] L ab (Internal) : [address] t ? ? S ? Tbil 0.4 mg/dL 0.2-1.3 Final [place] mg/dL [facility] L ab (Internal) : [address] t ? ? S ? Alp 65 U/L 50-136 Final [place] U/L [facility] L ab (Internal) : [address] t ? ? S High Alt 53 U/L 9-52 U/L Final [place] (Sgpt) [facility] L ab (Internal) : [address] t ? ? S ? Ast 34 U/L 14-36 U/L Final [place] (Sgot) [facility] L ab (Internal) : [address] t 11/11/2017 CBC W/ BLD Low Wbc 4.0 10*3/uL 5.0-10.0 Final [place] Auto Diff 10*3/uL [facility] Hospital L ab (Internal) : [address] t ? ? BLD ? Rbc 4.21 10*6/uL 4.10-5.30 Final N orth 10*6/uL [facility] L ab (Internal) : [address] t ? ? BLD ? Hgb 12.5 g/dL 12.0-16.0 Final Nort h g/dL [facility] L ab (Internal) : [address] ? ? BLD ? Hct 38.5 % 37.0-47.0 Final [facility] % [facility] L ab (Internal) : [address] [place] ? ? BLD ? Mcv 91.4 fL 80.0-96.0 Final [facility] Hospital L ab (Internal) : [address] ? ? BLD ? Mch 29.7 pg 26.0-32.0 Final [facility] Hospital L ab (Internal) : [address] ? ? BLD ? Mchc 32.5 g/dL 31.0-35.0 Final Nort h g/dL [facility] Hospital L ab (Internal) : [address] ? ? BLD ? Rdw 13.5 % 11.5-14.5 Final [facility] L ab (Internal) : [address] ? ? BLD ? Plt 236 10*3/uL 130-450 Final Nort h 10*3/uL [facility] Hospital L ab (Internal) : [address] ? ? BLD ? Anc 2.15 10*3/uL ? Final Nort [facility] Hospital L ab (Internal) : [address] ? ? BLD ? Neutro 53.7 % 40.0-75.0 Final [facility] L ab (Internal) : [address] ? ? BLD ? Lymph 32.9 % 20.0-50.0 Final [facility] L ab (Internal) : [address] ? ? BLD High [place] 10.7 % 2.0-10.0 Final [facility] L ab (Internal) : [address] ? ? BLD ? Eos 2.0 % 1.0-6.0 % Final [facility] Hospital L ab (Internal) : [address] ? ? BLD ? Baso 0.5 % 0.0-1.0 % Final [facility] Hospital L ab (Internal) : [address] ? ? BLD ? Ig 0.2 % 0.0-0.9 % Final [facility] L ab (Internal) : [address] 10/23/2017 Venipunct BLD ? Venpn* ? ? Final No rth ure [facility] L ab (Internal) : [address] t 10/23/2017 CBC W/ BLD ? Wbc 6.8 10*3/uL 5.0-10.0 Final [place] Diff 10*3/uL [facility] L ab (Internal) : [address] t ? ? BLD Low Rbc 3.54 10*6/uL 4.10-5.30 Final N orth 10*6/uL [facility] L ab (Internal) : [address] t ? ? BLD Low Hgb 10.5 g/dL 12.0-16.0 Final Nort h g/dL [facility] L ab (Internal) : [address] t ? ? BLD Low Hct 32.9 % 37.0-47.0 Final [facility] L ab (Internal) : [address] t ? ? BLD ? Mcv 92.9 fL 80.0-96.0 Final [facility] L ab (Internal) : [address] t ? ? BLD ? Mch 29.7 pg 26.0-32.0 Final [facility] L ab (Internal) : [address] t ? ? BLD ? Mchc 31.9 g/dL 31.0-35.0 Final Nort h g/dL [facility] L ab (Internal) : [address] t ? ? BLD ? Rdw 13.3 % 11.5-14.5 Final [facility] L ab (Internal) : [address] t ? ? BLD ? Plt 287 10*3/uL 130-450 Final Nort h 10*3/uL [facility] L ab (Internal) : [address] t ? ? BLD ? Anc 4.45 10*3/uL ? Final Nort h [facility] L ab (Internal) : [address] t ? ? BLD ? Neutro 65.9 % 40.0-75.0 Final [facility] L ab (Internal) : [address] t ? ? BLD ? Lymph 24.6 % 20.0-50.0 Final [facility] L ab (Internal) : [address] ? ? BLD ? [place] 7.3 % 2.0-10.0 Final North % [facility] L ab (Internal) : [address] t ? ? BLD ? Eos 1.0 % 1.0-6.0 % Final [facility] L ab (Internal) : [address] t ? ? BLD ? Baso 0.3 % 0.0-1.0 % Final [facility] L ab (Internal) : [address] t ? ? BLD ? Ig 0.9 % 0.0-0.9 % Final [facility] L ab (Internal) : [address] 10/23/2017 BMP, PLASMA High g/r 115 mg/dL 74-106 Final Nor th Serum or mg/dL [facility] L ab (Internal) : [address] t ? ? PLASMA Low Bun 3 mg/dL 7-17 Final North mg/dL [facility] L ab (Internal) : [address] t ? ? PLASMA ? Crea 0.70 mg/dL 0.52-1.04 Final Nor th mg/dL [facility] L ab (Internal) : [address] t ? ? PLASMA Low Ca 8.1 mg/dL 8.4-10.2 Final North mg/dL [facility] L ab (Internal) : [address] t ? ? PLASMA ? Na 138 mmol/L 137-145 Final North mmol/L [facility] L ab (Internal) : [address] t ? ? PLASMA ? K 3.9 mmol/L 3.5-5.1 Final [place] mmol/L [facility] L ab (Internal) : [address] t ? ? PLASMA ? Cl 106 mmol/L 98-107 Final [place] mmol/L [facility] L ab (Internal) : [address] t ? ? PLASMA ? Tco2 24.0 mmol/L 22.0-30.0 Final No rth mmol/L [facility] L ab (Internal) : [address] 10/22/2017 Venipunct BLD ? Venpn* ? ? Final No rth ure [facility] L ab (Internal) : [address] 10/22/2017 Neutrophi BLD ? Anc-man 7.24 10*3/uL ? Fi nal [place] l Count, ual [facility] Lab (Anc), (Internal) : Blood [address] 10/22/2017 Different BLD High Polys 78 % 40-75 % Final No rth ial, [facility] Lab Blood (Internal) : [address] t ? ? BLD ? Bands 0 % 0-5 % Final [facility] L ab (Internal) : [address] ? ? BLD Low Lymphs 16 % 20-50 % Final [facility] L ab (Internal) : [address] t ? ? BLD ? [place] 6 % 2-10 % Final [facility] L ab (Internal) : [address] t ? ? BLD ? Eos 0 % 0-6 % Final [facility] L ab (Internal) : [address] t ? ? BLD ? Baso 0 % 0-1 % Final [facility] L ab (Internal) : [address] t ? ? BLD ? Atyp 0 % ? Final [facility] Hospital L ab (Internal) : [address] t ? ? BLD ? Plts, adequate adequate Final [facility] Hospital L ab (Internal) : [address] t ? ? BLD ? RBC normal normal Final [facility] L ab (Internal) : [address] 10/22/2017 CBC W/ BLD ? Wbc 9.3 10*3/uL 5.0-10.0 Final [place] Auto Diff 10*3/uL [facility] L ab (Internal) : [address] t ? ? BLD Low Rbc 3.89 10*6/uL 4.10-5.30 Final N orth 10*6/uL [facility] L ab (Internal) : [address] t ? ? BLD Low Hgb 11.5 g/dL 12.0-16.0 Final Nort h g/dL [facility] L ab (Internal) : [address] t ? ? BLD Low Hct 35.8 % 37.0-47.0 Final [facility] : [address] t ? ? BLD ? Mcv 92.0 fL 80.0-96.0 Final [facility] fL [facility] ([facility] : [address] t ? ? BLD ? Mch 29.6 pg 26.0-32.0 Final North pg [facility] (Internal) : [address] t ? ? BLD ? Mchc 32.1 g/dL 31.0-35.0 Final Nort h g/dL [facility] (Internal) : [address] t ? ? BLD ? Rdw 13.2 % 11.5-14.5 Final North % [facility] (Internal) : [address] t ? ? BLD ? Plt 292 10*3/uL 130-450 Final Nort h 10*3/uL [facility] ([facility] : [address] t 10/22/2017 BMP, PLASMA High g/r 152 mg/dL 74-106 Final Nor th Serum or mg/dL [facility] (Internal) : [address] t ? ? PLASMA Low Bun 6 mg/dL 7-17 Final North mg/dL [facility] (Internal) : [address] t ? ? PLASMA ? Crea 0.60 mg/dL 0.52-1.04 Final Nor th mg/dL [facility] (Internal) : [address] t ? ? PLASMA Low Ca 8.3 mg/dL 8.4-10.2 Final [place] mg/dL [facility] (Internal) : [address] t ? ? PLASMA Low Na 135 mmol/L 137-145 Final [place] mmol/L [facility] L ab (Internal) : [address] ? ? PLASMA ? K 4.0 mmol/L 3.5-5.1 Final [place] mmol/L [facility] ([facility]) : [address] ? ? PLASMA ? Cl 104 mmol/L 98-107 Final [place] mmol/L [facility] L ab (Internal) : [address] t ? ? PLASMA ? Tco2 24.0 mmol/L 22.0-30.0 Final No rth mmol/L [facility] L ab (Internal) : [address] t 10/21/2017 Venipunct BLD ? Venpn* ? ? Final No rth ure [facility] L ab (Internal) : [address] 10/21/2017 Neutrophi BLD ? Anc-man 10.45 ? Final N orth l Count, ual 10*3/uL [facility] (Anc[facility] (Internal) : Blood [address] t 10/21/2017 Different BLD High Polys 88 % 40-75 % Final No rth ial, [facility] Lab Blood (Internal) : [address] t ? ? BLD ? Bands 0 % 0-5 % Final [facility] L ab (Internal) : [address] t ? ? BLD Low Lymphs 7 % 20-50 % Final [facility] L ab (Internal) : [address] t ? ? BLD ? [place] 5 % 2-10 % Final [facility] L ab (Internal) : [address] t ? ? BLD ? Eos 0 % 0-6 % Final [facility] L ab (Internal) : [address] t ? ? BLD ? Baso 0 % 0-1 % Final [facility] L ab (Internal) : [address] t ? ? BLD ? Atyp 0 % ? Final [facility] L ab (Internal) : [address] t ? ? BLD ? Plts, adequate adequate Final [facility] L ab (Internal) : [address] t ? ? BLD ? RBC normal normal Final [facility] L ab (Internal) : [address] t 10/21/2017 CBC W/ BLD High Wbc 11.9 10*3/uL 5.0-10.0 Final [place] Auto Diff 10*3/uL [facility] Hospital L ab (Internal) : [address] t ? ? BLD Low Rbc 3.63 10*6/uL 4.10-5.30 Final N orth 10*6/uL [facility] L ab (Internal) : [address] t ? ? BLD Low Hgb 10.6 g/dL 12.0-16.0 Final Nort h g/dL [facility] L ab (Internal) : [address] t ? ? BLD Low Hct 33.5 % 37.0-47.0 Final North % [facility] L ab (Internal) : [address] ? ? BLD ? Mcv 92.3 fL 80.0-96.0 Final [facility] L ab (Internal) : [address] ? ? BLD ? Mch 29.2 pg 26.0-32.0 Final [place] pg [facility] L ab (Internal) : [address] t ? ? BLD ? Mchc 31.6 g/dL 31.0-35.0 Final Nort h g/dL [facility] L ab (Internal) : [address] ? ? BLD ? Rdw 12.9 % 11.5-14.5 Final [facility] L ab (Internal) : [address] ? ? BLD ? Plt 225 10*3/uL 130-450 Final Nort h 10*3/uL [facility] L ab (Internal) : [address] 10/21/2017 BMP, PLASMA High g/r 163 mg/dL 74-106 Final Nor th Serum or mg/dL [facility] Hospital L ab (Internal) : [address] ? ? PLASMA Low Bun 4 mg/dL 7-17 Final North mg/dL [facility] L ab (Internal) : [address] ? ? PLASMA ? Crea 0.60 mg/dL 0.52-1.04 Final Nor th mg/dL [facility] L ab (Internal) : [address] t ? ? PLASMA Low Ca 8.2 mg/dL 8.4-10.2 Final [place] mg/dL [facility] L ab (Internal) : [address] ? ? PLASMA ? Na 137 mmol/L 137-145 Final [place] mmol/L [facility] L ab (Internal) : [address] t ? ? PLASMA ? K 4.2 mmol/L 3.5-5.1 Final [place] mmol/L [facility] L ab (Internal) : [address] t ? ? PLASMA ? Cl 105 mmol/L 98-107 Final [place] mmol/L [facility] L ab (Internal) : [address] t ? ? PLASMA ? Tco2 25.0 mmol/L 22.0-30.0 Final No rth mmol/L [facility] L ab (Internal) : [address] t 10/20/2017 Pathology TISS ? Report results ? Final N orth Study below [facility] ab (Internal) : [address] t 10/20/2017 Culture, UR ? Final microbiology ? Final [place] Urine results [facility] ab (Internal) : [address] 10/20/2017 UR ? Hcgu negative negative Final [place] Test, [facility] L ab (Internal) : [address] t 10/20/2017 Urinalysi UR ABNORM UA-WBC 3-5 [hpf] 0-3 [hpf] Fin al [place] s, [place] [facility] ic (Internal) : [address] t ? ? UR ABNORM UA-RBC 3-5 [hpf] 0-2 [hpf] Final Nor [facility] L ab (Internal) : [address] t ? ? UR ? UA-bact none seen none seen Final No rth eria [hpf] [hpf] [facility] ab (Internal) : [address] t ? ? UR ? UA-epit rare [hpf] none seen Final N orth helial [hpf] [facility] ab (Internal) : [address] ? ? UR ? UA-mucu none seen none seen Final No rth s [hpf] [hpf] [facility] ab (Internal) : [address] t 10/20/2017 Urinalysi UR ? UA-colo yellow pale Final N orth s, r yellow [facility] Lab Reflex (Internal) : Micro [address] t ? ? UR ? UA-appe clear clear Final [facility] L ab (Internal) : [address] t ? ? UR ? UA-spec <=1.005 1.003-1.0 Final Nort h Grav 35 [facility] L ab (Internal) : [address] t ? ? UR ? UA-pH 6.5 [pH] 4.6-8.0 Final [place] [pH] [facility] L ab (Internal) : [address] t ? ? UR ? UA-leuk negative negative Final Nort h Est [facility] L ab (Internal) : [address] t ? ? UR ? UA-nitr negative negative Final Nort h ite [facility] L ab (Internal) : [address] t ? ? UR ? UA-prot negative negative Final Nort h [facility] ab (Internal) : [address] ? ? UR ? UA-gluc negative negative Final [facility] ab (Internal) : [address] ? ? UR ABNORM UA-keto trace negative Final [facility] L ab (Internal) : [address] ? ? UR ABNORM UA-urob positive normal Final [facility] ab (Internal) : [address] t ? ? UR ? UA-bili negative negative [facility] [address] ? ? UR ABNORM UA-bloo small negative Final [facility] ab (Internal) : [address] 10/20/2017 Neutrophi BLD ? Anc-man 9.01 10*3/uL ? Fi nal [place] l Count, ual [facility] (Anc[facility] (Internal) : Blood [address] 10/20/2017 Different BLD High Polys 82 % 40-75 % Final No rth ial, [facility] Lab Blood (Internal) : [address] ? ? BLD ? Bands 0 % 0-5 % Final [facility] L ab (Internal) : [address] ? ? BLD Low Lymphs 13 % 20-50 % Final [facility] ab (Internal) : [address] ? ? BLD ? [place] 5 % 2-10 % Final [facility] L ab (Internal) : [address] t ? ? BLD ? Eos 0 % 0-6 % Final [facility] L ab (Internal) : [address] ? ? BLD ? Baso 0 % 0-1 % Final [facility] L ab (Internal) : [address] ? ? BLD ? Atyp 0 % ? Final [place] Lymph [facility] L ab (Internal) : [address] t ? ? BLD ? Plts, adequate adequate Final [place] Est. [facility] L ab (Internal) : [address] t ? ? BLD ? RBC normal normal Final [place] [facility] L ab (Internal) : [address] ? ? BLD ? Giant occasional ? Final [place] Plt [facility] L ab (Internal) : [address] 10/20/2017 Lipase, S ? Lip 42 U/L 23-300 Final [place] Serum or U/L [facility] L ab (Internal) : [address] 10/20/2017 CMP, S ? g/r 106 mg/dL 74-106 Final Nor th Serum or mg/dL [facility] L ab (Internal) : [address] t ? ? S ? Bun 8 mg/dL 7-17 Final [place] mg/dL [facility] L ab (Internal) : [address] t ? ? S ? Crea 0.70 mg/dL 0.52-1.04 Final Nor th mg/dL [facility] L ab (Internal) : [address] t ? ? S ? Ca 9.0 mg/dL 8.4-10.2 Final [place] mg/dL [facility] L ab (Internal) : [address] t ? ? S ? Na 138 mmol/L 137-145 Final [place] mmol/L [facility] L ab (Internal) : [address] ? ? S Low K 3.3 mmol/L 3.5-5.1 Final [place] mmol/L [facility] L ab (Internal) : [address] t ? ? S ? Cl 99 mmol/L 98-107 Final [place] mmol/L [facility] L ab (Internal) : [address] ? ? S ? Tco2 27.0 mmol/L 22.0-30.0 Final No rth mmol/L [facility] L ab (Internal) : [address] t ? ? S ? Tp 8.1 g/dL 6.3-8.2 Final [place] g/dL [facility] L ab (Internal) : [address] ? ? S ? Alb 4.2 g/dL 3.5-5.0 Final [place] g/dL [facility] L ab (Internal) : [address] t ? ? S ? Tbil 0.9 mg/dL 0.2-1.3 Final [place] mg/dL [facility] L ab (Internal) : [address] ? ? S ? Alp 91 U/L 50-136 Final [place] U/L [facility] L ab (Internal) : [address] ? ? S ? Alt 34 U/L 9-52 U/L Final [place] (Sgpt) [facility] L ab (Internal) : [address] ? ? S High Ast 39 U/L 14-36 U/L Final [place] (Sgot) [facility] L ab (Internal) : [address] t 10/20/2017 CBC W/ BLD High Wbc 11.0 10*3/uL 5.0-10.0 Final [place] Auto Diff 10*3/uL [facility] (Internal) : [address] t ? ? BLD ? Rbc 4.40 10*6/uL 4.10-5.30 Final N orth 10*6/uL [facility] L ab (Internal) : [address] t ? ? BLD ? Hgb 13.2 g/dL 12.0-16.0 Final Nort h g/dL [facility] L ab (Internal) : [address] ? ? BLD ? Hct 39.8 % 37.0-47.0 Final [place] % [facility] L ab (Internal) : [address] t ? ? BLD ? Mcv 90.5 fL 80.0-96.0 Final [facility] L ab (Internal) : [address] ? ? BLD ? Mch 30.0 pg 26.0-32.0 Final [place] pg [facility] L ab (Internal) : [address] ? ? BLD ? Mchc 33.2 g/dL 31.0-35.0 Final Nort h g/dL [facility] L ab (Internal) : [address] ? ? BLD ? Rdw 12.8 % 11.5-14.5 Final North % [facility] L ab (Internal) : [address] ? ? BLD ? Plt 291 10*3/uL 130-450 Final Nort h 10*3/uL [facility] L ab (Internal) : [address] Past Encounters 08/04/2021 Neck Pain Brittany Blood, PT: [address] [place] [phone], Ph. 07/21/2021 Abdominal Pain Joaquín Ramon RN: [address] [place] [phone], Ph. 07/04/2021 Surveillance of Depot Contraception Done Simone De La Fuente MD: [address] [place] [phone], Ph. 07/04/2021 Neck Pain Brittany Blood, PT: [address] [place] [phone], Ph. 06/13/2021 Neck Pain Suzi Mcleod, INVESTIGATIONS CHIEF: [address] [place] [address] [place] [address], Ph. 06/02/2021 Seizure Disorder Tara Herzog MD: [address] [place] [phone], Ph. 05/05/2021 Asthma Tara Herzog MD: [address] [place] [phone], Ph. 04/14/2021 Surveillance of Depot Contraception Done Simone De La Fuente MD: [address] [place] [phone], Ph. 04/12/2021 Abdominal Pain Beatrice Lynne MD: [address] [place] [address], Ph. 04/04/2021 Hyperlipidemia Screening; Obesity; Insom dominick; Adult Health Examination; Asthma Tara Herzog MD: [address] [place] [address], Ph. 03/22/2021 Abdominal Pain Beatrice Lynne MD: [address] [place] [address], Ph. 03/02/2021 Pyuria; Microscopic Hematuria; Stenosis of Urinary Meatus; Incomplete Emptying of Bladder Gurpreet Tadeo MD: [address] [place] [address], Ph. 01/31/2021 Pyuria; Microscopic Hematuria; Incomplet e Emptying of Bladder Gurpreet Tadeo MD: [address] [place] [address], Ph. 01/27/2021 Abnormal Urine Odor; Abdominal Pain Tara Herzog MD: [address] [place] [phone], Ph. 01/27/2021 Surveillance of Depot Contraception Done Simone De La Fuente MD: [address] [place] [address], Ph. 01/25/2021 Abdominal Pain; Recurrent Urinary Tract Infection; Recurrent Ventral Incisional Hernia Beatrice Lynne MD: [address] [place] [address], Ph. 01/07/2021 Recurrent Urinary Tract Infection; Recur rent Ventral Incisional Hernia Beatrice Lynne MD: [address] [place] [address], Ph. 12/24/2020 Recurrent Ventral Incisional Hernia Beatrice Lynne MD: [address] [place] [address], Ph. 12/23/2020 Migraine Tara Herzog MD: [address] [place] [address], Ph. 12/14/2020 Recurrent Ventral Incisional Hernia Beatrice Lynne MD: [address] [place] [address], Ph. 12/09/2020 Orthostatic Hypotension; Insomnia Tara Herzog MD: [address] [place] [address], Ph. 11/11/2020 Surveillance of Depot Contraception Done Simone De La Fuente MD: [address] [place] [phone], Ph. 11/09/2020 Recurrent Ventral Incisional Hernia Beatrice Lynne MD: [address] [place] [address], Ph. 10/25/2020 Incisional Hernia; Migraine with Aura Tara Herzog MD: [address] [place] [phone], Ph. 10/18/2020 Pain in Left Thumb; Tenosynovitis Erica Ashby, OT: [address] [facility], [facility] [place], [place] [phone], Ph. 10/15/2020 Pain in Left Thumb; Tenosynovitis Ollie Richards, OT: [address] [place] [address], [facility] 1, [place] [address], Ph. 10/08/2020 Pain in Left Thumb; Tenosynovitis Ollie Richards, OT: [address] [place] [address], [facility] 1, [place] [address], Ph. 10/06/2020 Marco Antonio Jiménez PA-C: [address] [place] [address] [place] [address], Ph. 10/01/2020 Pain in Left Thumb; Giacomo Richards, OT: [address] [phone], Ph. 09/29/2020 Expressive Language Disorder; Visual Dis turbance; Migraine with Aura Tara Herzog MD: [address] [place] [phone], Ph. 09/23/2020 Pain in Left Thumb; Giacomo Richards, OT: [address] [phone], Ph. 09/16/2020 Pain in Left Thumb; Giacomo Ashby, OT: [address] [phone], Ph. 09/09/2020 Pain in Left Thumb; Giacomo Ashby, OT: [address] [phone], Ph. 09/02/2020 Pain in Left Thumb; Giacomo Ashby, OT: [address] [place] [phone], Ph. 08/26/2020 Pain in Left Thumb; Giacomo Richards, OT: [address] [place] [phone], Ph. 08/26/2020 Marco Antonio Jiménez PA-C: [address] [place] [phone], Ph. 08/25/2020 Surveillance of Depot Contraception Done Simone De La Fuente MD: [address] [place] [phone], Ph. 08/20/2020 Pain in Left Thumb; Giacomo Richards, OT: [address] [place] [phone], Ph. 08/13/2020 Pain in Left Thumb; Tenosynovitis Ollie Richards, OT: [address] [place] [address] [address] , [address], [place] [address], Ph. 08/05/2020 Pain in Left Thumb; Juan Carlososynovineha Richards, OT: [address] [place] [address] [address] , [address], [place] [address], Ph. 08/02/2020 Pain in Left Thumb; Juan Carlososynovitis Ollie Richards, OT: [address] [place] [address], [address], [place] [address], Ph. 07/26/2020 Pain in Left Thumb; Juan Carlososynovineha Richards, OT: [address] [place] [address] [address] , [address], [place] [address], Ph. 07/22/2020 Pain in Left Thumb; Juan Carlososynovineha Richards, OT: [address] [place] [address] [address]ib[address], [address], [place] [address], Ph. 07/22/2020 TREVON RobertsonC: [address] [place] [address] [facility], [place] [address], Ph. 07/19/2020 Pain in Left Thumb; Juan Carlososynovineha Ashby, OT: [address] [place] [address], [facility] 1, [place] [address], Ph. 07/15/2020 Pain in Left Thumb; Itaovineha Richards, OT: [address] [place] [address], [address], [place] [address], Ph. 07/12/2020 Pain in Left Thumb; Juan Carlososynovineha Ashby, OT: [address] [place] [address], [address], [place] [address], Ph. 07/08/2020 Pain in Left Thumb; Juan Carlososynovineha Richards, OT: [address] [place] [address] [address] , [address], [place] [address], Ph. 07/05/2020 Pain in Left Thumb; Tenosynovitis Ollie Richards, OT: [address] [phone], Ph. 07/01/2020 Pain in Left Thumb; Tenosynovitis Ollie Richards, OT: [address] [place] [phone], Ph. 06/28/2020 Pain in Left Thumb; Tenosynovitis Ollie Richards, OT: [address] [place] [phone], Ph. 06/24/2020 Pain in Left Thumb; Tenosynovitis Ollie Richards, OT: [address] [place] [phone], Ph. 06/17/2020 Marco Antonio Jiménez PA-C: [address] [place] [phone], Ph. 06/09/2020 Gynecologic Examination; Surveillance of Depot Contraception Done Simone De La Fuente MD: [address] [place] [phone], Ph. 04/01/2020 Cough; Adult Health Examination Tara Herzog MD: [address] [place] [address] [id number], Ph. Social History Tobacco Smoking Status Never Smoker Vaccine List Vaccine Type COVID-19, mRNA, LNP-S, PF, 30 mcg/0.3 mL dose ([employer]) 02/05/2021 02/26/2021 Hep B, adolescent or pediatric HPV, quadrivalent 06/20/2007 08/21/2007 01/27/2008 influenza, seasonal, injectable, preserv ative free 08/29/2006 12/02/2010?0.5 mL novel [id number], all formulation s 11/02/2009 Td (adult), adsorbed Tdap 03/05/2012?0.5 mL Plan of Care Reminders Provider Appointments None ? ? recorded. Lab None ? ? recorded. Referral None ? ? recorded. Procedures None ? ? recorded. Surgeries None ? ? recorded. Imaging None ? ? recorded. Vitals 07/04/2021 03:40PM Injection 10 Height Blood Pressure 164.47 cm 112/72 mm[Hg] 06/13/2021 10:40AM Acute 20 Height Weight BMI 164.47 cm 92.28 kg 34.1 kg/m2 06/02/2021 12:40PM Follow Up 20 Height Weight BMI Blood Pressure 164.47 cm 93.44 kg 34.5 kg/m2 106/76 mm[Hg] 05/05/2021 10:00AM Follow Up 20 Height Weight BMI Blood Pressure 164.47 cm 95.57 kg 35.3 kg/m2 106/82 mm[Hg] 04/14/2021 03:30PM Injection 10 Height 164.47 cm 04/12/2021 02:00PM Acute 15 Height 164.47 cm 04/04/2021 10:00AM CPE 40 Height Weight BMI Blood Pressure 164.47 cm 92.53 kg 34.2 kg/m2 104/80 mm[Hg] 03/22/2021 09:45AM Office 15 Height Blood Pressure 163.83 cm 140/88 mm[Hg] 03/02/2021 09:00AM Office 20 Height Weight BMI Blood Pressure 163.83 cm 93.08 kg 34.7 kg/m2 126/80 mm[Hg] 01/31/2021 08:00AM Office 20 Height Weight BMI Blood Pressure 163.83 cm 93.94 kg 35 kg/m2 120/88 mm[Hg] 01/27/2021 03:30PM Injection 10 Height 163.83 cm 01/27/2021 04:00PM Follow Up 20 Height Weight BMI Blood Pressure 163.83 cm 94.4 kg 35.2 kg/m2 124/76 mm[Hg] 01/25/2021 08:00AM Acute 15 Height Blood Pressure 163.83 cm 122/80 mm[Hg] 01/07/2021 08:45AM Office 15 Height Blood Pressure 163.83 cm 128/78 mm[Hg] 12/23/2020 03:20PM Follow Up 20 Height Weight BMI Blood Pressure 163.83 cm 91.63 kg 34.1 kg/m2 110/70 mm[Hg] 12/14/2020 08:45AM Office 15 Height Blood Pressure 163.83 cm 115/90 mm[Hg] 12/09/2020 04:20PM Acute 20 Height Weight BMI Blood Pressure 163.83 cm 92.99 kg 34.6 kg/m2 110/70 mm[Hg] 11/11/2020 03:20PM Injection 10 Height Weight BMI 163.83 cm 98.88 kg 36.8 kg/m2 11/09/2020 08:30AM Office 15 Height Blood Pressure 163.83 cm 120/78 mm[Hg] 10/25/2020 04:20PM Follow Up 20 Height Weight BMI Blood Pressure 163.83 cm 97.52 kg 36.3 kg/m2 120/80 mm[Hg] 09/29/2020 01:40PM Follow Up 20 Height Weight BMI Blood Pressure 163.83 cm 97.52 kg 36.3 kg/m2 120/80 mm[Hg] 08/26/2020 11:00AM Follow Up 15 Height Weight 163.83 cm 08/25/2020 03:50PM Injection 10 Height Weight BMI 163.83 cm 99.79 kg 37.2 kg/m2 07/22/2020 09:30AM Follow Up 15 Height Weight 163.83 cm 06/17/2020 10:30AM Acute 15 Height Weight BMI 163.83 cm 98.43 kg 36.7 kg/m2 06/09/2020 02:30PM HME 20 Height Weight BMI Blood Pressure 163.83 cm 98.43 kg 36.7 kg/m2 120/80 mm[Hg] 04/01/2020 01:00PM CPE 40 Height Weight BMI Blood Pressure 163.83 cm 98.94 kg 36.9 kg/m2 118/74 mm[Hg] 02/19/2020 01:00PM Injection 10 Height Weight BMI 163.83 cm 99.34 kg 37 kg/m2 12/04/2019 01:00PM Injection 10 Height Weight BMI 163.83 cm 95.71 kg 35.7 kg/m2 11/18/2019 03:15PM Acute 30 Height Weight BMI 163.83 cm 92.99 kg 34.6 kg/m2 11/05/2019 04:00PM Acute 20 Height Blood Pressure 163.83 cm 118/86 mm[Hg] 10/09/2019 08:40AM Acute 20 Height Weight BMI Blood Pressure 163.83 cm 95.51 kg 35.6 kg/m2 110/82 mm[Hg] 09/18/2019 10:50AM Injection 10 Height Weight BMI 163.83 cm 96.16 kg 35.8 kg/m2 07/24/2019 02:20PM Acute 20 Height Weight BMI Blood Pressure 163.83 cm 93.17 kg 34.7 kg/m2 118/78 mm[Hg] 06/12/2019 02:00PM Acute 20 Height Weight BMI Blood Pressure 163.83 cm 95.16 kg 35.5 kg/m2 118/72 mm[Hg] 06/04/2019 02:45PM Acute 15 Height Weight BMI 163.83 cm 95.89 kg 35.7 kg/m2 04/10/2019 10:20AM HME 20 Height Weight BMI Blood Pressure 163.83 cm 93.98 kg 35 kg/m2 118/76 mm[Hg] 04/10/2019 01:20PM Same Day 20 Height Weight BMI Blood Pressure 163.83 cm 93.89 kg 35 kg/m2 114/72 mm[Hg] 12/12/2018 10:00AM CPE 40 Height Weight BMI Blood Pressure 163.83 cm 95.31 kg 35.5 kg/m2 120/80 mm[Hg] 08/19/2018 01:50PM Injection 10 Height Weight BMI 163.83 cm 96.16 kg 35.8 kg/m2 05/21/2018 02:20PM Injection 10 Height Weight BMI 163.83 cm 95.25 kg 35.5 kg/m2 05/20/2018 09:40AM Acute 20 Height Blood Pressure 163.83 cm 120/72 mm[Hg] 05/07/2018 08:00AM Office 15 Height 163.83 cm 04/02/2018 09:00AM Office 15 Height 163.83 cm 02/14/2018 09:50AM HME 20 Height Weight BMI Blood Pressure 163.83 cm 93.3 kg 34.8 kg/m2 118/72 mm[Hg] 11/12/2017 Height Weight 163.83 cm 92.26 kg 11/12/2017 Blood Pressure 110/80 mm[Hg] 09/11/2017 Blood Pressure 110/70 mm[Hg] 09/11/2017 Weight 93.03 kg 06/27/2017 Weight 92.31 kg 06/27/2017 Blood Pressure 110/66 mm[Hg] 01/03/2017 Height Weight 162.56 cm 91.17 kg 01/03/2017 Blood Pressure 114/66 mm[Hg] 11/08/2016 Weight 92.08 kg 11/08/2016 Blood Pressure 110/72 mm[Hg] 07/03/2016 Blood Pressure 112/68 mm[Hg] 07/03/2016 Weight 93.58 kg 12/16/2015 Blood Pressure 120/60 mm[Hg] 12/16/2015 Weight 91.85 kg 12/07/2015 Height Weight 162.56 cm 88.9 kg 12/07/2015 Blood Pressure 118/66 mm[Hg] 11/03/2015 Height Weight 162.56 cm 91.04 kg 11/03/2015 Blood Pressure 118/70 mm[Hg] 10/07/2015 Blood Pressure 126/72 mm[Hg] 10/07/2015 Weight 86.82 kg 10/30/2014 Blood Pressure 112/70 mm[Hg] 10/30/2014 Height Weight 162.56 cm 87.41 kg 09/22/2014 Height Weight 162.56 cm 88 kg 09/22/2014 Blood Pressure 130/70 mm[Hg] 03/04/2014 Weight 87.26 kg 03/04/2014 Blood Pressure 110/72 mm[Hg] 09/22/2013 Weight 84.91 kg 08/14/2013 Height Weight 162.56 cm 85.3 kg 08/14/2013 Blood Pressure 110/70 mm[Hg] 07/23/2013 Height Weight 162.56 cm 87.09 kg 07/23/2013 Blood Pressure 132/80 mm[Hg] 02/03/2013 Blood Pressure 104/70 mm[Hg] 02/03/2013 Weight 89.1 kg 12/26/2012 Blood Pressure 104/80 mm[Hg] 12/18/2012 Blood Pressure 118/70 mm[Hg] 09/06/2012 Blood Pressure 124/76 mm[Hg] 09/06/2012 Weight 88 kg 08/05/2012 Weight 85.18 kg 08/05/2012 Blood Pressure 98/56 mm[Hg] 06/24/2012 Height Weight 162.56 cm 83.91 kg 06/24/2012 Blood Pressure 136/88 mm[Hg] 04/01/2012 Height Weight 162.56 cm 83.26 kg 04/01/2012 Blood Pressure 110/70 mm[Hg] 02/28/2012 Height Weight 162.56 cm 84.54 kg 02/28/2012 Blood Pressure 126/76 mm[Hg] 02/15/2012 Height Weight 162.56 cm 83.01 kg 02/15/2012 Blood Pressure 108/68 mm[Hg] 01/24/2012 Blood Pressure 118/72 mm[Hg] 01/24/2012 Height Weight 162.56 cm 87.18 kg 06/21/2011 Blood Pressure 128/76 mm[Hg] 06/21/2011 Height Weight 162.56 cm 83.91 kg 03/13/2011 Weight 81.65 kg 01/27/2011 Blood Pressure 108/70 mm[Hg] 01/27/2011 Height Weight 162.56 cm 83.46 kg 01/27/2010 Blood Pressure 98/60 mm[Hg] 01/27/2010 Weight 83.01 kg 12/21/2009 Weight 82.55 kg 12/21/2009 Blood Pressure 126/78 mm[Hg] 12/07/2009 Blood Pressure 114/82 mm[Hg] 12/07/2009 Weight 82.1 kg 11/17/2009 Blood Pressure 124/76 mm[Hg] 11/17/2009 Weight 83.46 kg 08/18/2009 Blood Pressure 112/70 mm[Hg] 08/18/2009 Height Weight 161.93 cm 83.01 kg 07/28/2009 Weight 83.01 kg 07/28/2009 Blood Pressure 118/60 mm[Hg] 03/10/2009 Height Blood Pressure 162.56 cm 112/60 mm[Hg] 01/08/2009 Blood Pressure 104/70 mm[Hg] 01/08/2009 Height Weight 162.56 cm 76.2 kg 12/17/2008 Weight 77.11 kg 12/17/2008 Blood Pressure 120/74 mm[Hg] 07/02/2008 Blood Pressure 110/80 mm[Hg] 07/02/2008 Height Weight 162.56 cm 72.12 kg 06/03/2008 Blood Pressure 122/78 mm[Hg] 06/03/2008 Weight 70.31 kg 11/15/2007 Blood Pressure 120/68 mm[Hg] 09/06/2007 Weight 68.95 kg 09/06/2007 Blood Pressure 110/60 mm[Hg] 08/14/2007 Weight 68.72 kg 08/14/2007 Blood Pressure 108/82 mm[Hg] 08/09/2007 Blood Pressure 102/70 mm[Hg] 08/09/2007 Weight 68.95 kg 08/06/2007 Blood Pressure 110/72 mm[Hg] 08/06/2007 Weight 68.49 kg 06/14/2007 Weight 67.13 kg 06/14/2007 Blood Pressure 118/84 mm[Hg] 03/15/2007 Blood Pressure 110/70 mm[Hg] 03/15/2007 Weight 70.76 kg 02/15/2007 Height Weight 162.56 cm 70.31 kg 02/15/2007 Blood Pressure 114/70 mm[Hg] 11/28/2006 Weight 75.47 kg 11/28/2006 Blood Pressure 110/76 mm[Hg] 09/12/2006 Blood Pressure 100/68 mm[Hg] 09/12/2006 Weight 69.85 kg 08/27/2006 Weight 68.55 kg 08/27/2006 Blood Pressure 102/74 mm[Hg] 06/27/2006 Height Weight 163.83 cm 70.31 kg 06/15/2006 Blood Pressure 126/72 mm[Hg] 06/15/2006 Weight 72.23 kg 04/18/2006 Blood Pressure 108/70 mm[Hg] 04/18/2006 Weight 66.9 kg 04/06/2006 Weight 67.3 kg 04/06/2006 Blood Pressure 120/86 mm[Hg] 04/02/2006 Blood Pressure 120/84 mm[Hg] 04/02/2006 Weight 68.49 kg 03/19/2006 Weight 68.49 kg 03/19/2006 Blood Pressure 108/84 mm[Hg] 02/21/2006 Weight 66.9 kg 02/21/2006 Blood Pressure 112/72 mm[Hg] 02/14/2006 Blood Pressure 120/80 mm[Hg] 02/14/2006 Height Weight 162.56 cm 67.81 kg 11/09/2005 Weight 70.08 kg 11/09/2005 Blood Pressure 130/76 mm[Hg] 11/30/2004 Blood Pressure 110/80 mm[Hg] 11/30/2004 Weight 66.85 kg 03/11/2004 Height Weight 162.56 cm 65.77 kg
--- OUTSIDE RECORDS SUMMARY | 2021-08-26 07:31 | XMS_ITS | Encounter Summary ---
:1985 Author Care Team Providers Name Role Phone James Herzog MD Primary Care Provider [phone] Carina Ramon Diplomatic Interpreter [phone] Justino Bashir MD General Surgeon [phone] Chalino Bolanos MD Urologist [phone] Ramonita Caceres PA-C Orthopedic Surgeon [phone] Reason for Visit Right neck pain Assessment and Plan 1. Neck pain Discussion Note: None recorded.Patient educational handouts: No information available. Plan of Care Reminders Provider Appointments Office 20 09/02/2021 Chari Bolanos, 9:20AM MD ? Hme 20 09/20/2021 Simone irwin MD 1:20PM ? Follow up 10/31/2021 James alvarez MD 20 9:20AM Lab None ? ? recorded. Referral None ? ? recorded. Procedures None ? ? recorded. Surgeries None ? ? recorded. Imaging None ? ? recorded. Medications Name Start Date ? ? ibuprofen 800 mg tablet 03/31/2021 Take 1 tablet 3 times a day by oral route for 10 days . levetiracetam ? 500 mg BID lidocaine 4 % topical patch 03/31/2021 Apply 1 patch every day by topical route as needed. medroxyprogesterone 150 mg/mL intramuscular suspension ? Inject 1 mL every 3 months by intramuscular route. melatonin 10 mg tablet ? Take 1 tablet every day by oral route at bedtime. ProAir HFA 90 mcg/actuation aerosol inhaler 03/31/2021 INHALE 1-2 PUFFS (180 MCG) BY INHALATION ROUTE EVERY 4-6 HOURS NEEDED sumatriptan 50 mg tablet 03/31/2021 Take 1 tablet by oral route as directed. take one at onset of headache. Symbicort 160 mcg-4.5 mcg/actuation HFA aerosol inhale r ? Inhale 2 puffs twice a day by inhalation route. Topamax 50 mg tablet ? Take 1 tablet twice a day by oral route for 30 days. topiramate 25 mg tablet 03/31/2021 Take 1 tablet every day by oral route in the evening. Zofran 03/31/2021 as needed Notes: 06/13/21 verbal review Medications Administered None recorded. Vitals None recorded. Results Lab Results None recorded. Allergies Code Code System Name Reaction Severity Onset NKDA ? ? ? Problems Name Status Onset Date Source ? Abdominal Pain Active 03/31/2021 ? Insomnia Active 04/04/2021 ? Asthma Active ? ? Procedures Date Name Performed by ? 07/25/2021 [place]oscopy Information not avai [place]able Notes[place] [facility] [place] 5 year f/ u recommended 03/31/2021 Laparoscopy Diagnostic Information not a vailable Notes: lysis of adhesions 11/25/2020 Laparoscopic Ventral Hernia Repair (Surg ) Information not available Notes: lap ventral incisional hernia repair with mesh 03/14/2018 Hernia Repair Umbilical Information not available Notes: laparoscopic 10/20/2017 Appendectomy Information not avai lable 02/03/2007 Delivery Information not avai lable Vaccine List Vaccine Type COVID-19, mRNA, LNP-S, PF, 30 mcg/0.3 mL dose ([employer]) 02/05/2021 02/26/2021 Hep B, adolescent or pediatric HPV, quadrivalent 06/20/2007 08/21/2007 01/27/2008 influenza, seasonal, injectable, preserv ative free 08/29/2006 12/02/2010?0.5 mL novel [id number], all formulation s 11/02/2009 Td (adult), adsorbed Tdap 03/05/2012?0.5 mL Social History Tobacco Smoking Status Never Smoker What type of diet are you REGULAR following? Any signs of neglect or abuse? no signs of neglect or abuse noted How many children do you have? 1 Are you currently employed? Y Have you used IV drugs? N Are you blind or do you have N Notes: W ears glasses. difficulty seeing? Vision corrected What is your code status? 0 How much tobacco do you chew? none Performs monthly self-breast N exam? What was the date of your most 05/05/2021 recent tobacco screening? Do you or have you ever used Never used electronic e-cigarettes or vape? cigarettes Do you have an advanced Y Notes: Advanc e Directive directive? 04/08/2021 General stress level Medium Do you feel safe at home? Y What is your exercise level? None What is your relationship Single status? Live alone or with others? with others Notes: Saul selvinshannan What is your level of alcohol None consumption? Which of your hands is Right dominant? Animal exposure? Y Did the fall result in an N injury? Education 12 Do you or have you ever used Never used smokeless tobacco smokeless tobacco? Which illicit or recreational none drugs have you used? Are you passively exposed to N smoke? Hard of hearing or deaf in one N or both ears? What is your level of caffeine Moderate Notes: soda 1 a day consumption? Seat belts used routinely Y Currently N Have you fallen in the last 3 N months? Family History Relation Problem Onset Age of Age Notes Maternal Grandfather Chronic obstructive (No N/A (No Notes) lung disease Information) Paternal Grandmother Chronic obstructive (No N/A (No Notes) lung disease Information) Functional Status No Impairment. Past Encounters 07/04/2021 Surveillance of Depot Contraception Done Simone De La Fuente [facility]: [address] [facility] [place] [address], Ph. 07/04/2021 Neck Pain Brittany Blood, PT: [address] [facility] [address], [address], [place] [address], Ph. 06/13/2021 Neck Pain Suzi Mcleod CIRCUIT JUDGE: [address] [place] [address] [place] [address], Ph. History of Present Illness ? [facility] PT Evaluation Reported By: Patient Visit Type: Today's therapy visit: Init ial Evaluation Subjective:: Patient ID check patient ID and date of checked. Subjective ; 35 y/o female had remote history of seizure di sorder as a child however in May of this year the seizures returned and she developed n chantell pain right sided that goes away however comes back when she has a seizure and lasts during the seizure only Pertinent Past Medical History: Pertinent Past Medical History includes ; SEIZURE DO childhood now re emerged in May 4-5 weeks nowabdominal paina sthmainsomnia Pertinent Medications: Pertinent Medications inclu alina ; doxepin 10 mgibuprofen 800 mglevetirace price 500 mgsumatriptan 50 mgKepra 200 0 mg Pertinent Allergies: Pertinent Allergies includes ; KNDA *Barriers/Needs:: Barriers to Learning none id entified. Special Communication Needs none elliot ntified *Impairment Observations and Tolerance Previous Level of Function ; No issues. to Daily Living:: Current Level of Function ; driving cannot turn head cannot driveturnin g head to cross streetdisturbs sleep a few t imes per nightpainful looking upcanno t do housework due to pain Pain Description:: Pain (location, nature, beha vior severity) ; n/a Review of Systems None recorded. Physical Exam ? Notes: <div>
</div>Patient Educa tion Provided Today: PT discussed poc and she has no symptoms today so we will not treat and hold the chart for 30 days. <div>
<p>Physical Therapy Assessment: SEEN NO CHARGE: Patient reports pain only immediately post seizur e. She has now been seizure free for 30 days. PT discussed and we will hold c rowland however PT may not be beneficial if her pain is only present during and i mmediately after seizures. CHART HELD 30 DAYS</p><p>Plan:
</p>{{H OLD 30 DAYS# Continue as per plan of care. Progress Summary next visit. Discharge Summary next visit. Patient will be placed on hold.}}<p></p>< p>
</p><p>Time (min): </p>{{15 MINUTES# }}<p></p><p>Time: In </p>{{1000AM# }} Out: {{1015AM# }}<p></p><p></p>< /div>
--- OUTSIDE RECORDS SUMMARY | 2021-08-26 07:31 | XMS_ITS | Encounter Summary ---
:1985 Author Care Team Providers Name Role Phone James Herzog MD Primary Care Provider [phone] Carina Ramon Developer Relations Manager [phone] Justino Bashir MD General Surgeon [phone] Chalino Bolanos MD Urologist [phone] Ramonita Caceres PA-C Orthopedic Surgeon [phone] Reason for Visit neck pain Assessment and Plan 1. Neck [...] 07/25/2021 Colonoscopy Information not avai lable Notes: [facility] [place], 5 year [...] mRNA, LNP-S, PF, 30 mcg/0.3 mL dose ([employer]) 02/05/2021 02/26/2021 Hep B, adolescent or pediatric HPV, quadrivalent 06/20/2007 08/21/2007 01/27/2008 influenza, seasonal, injectable, preserv ative free 08/29/2006 12/02/2010?0.5 mL novel [id number], all formulation s 11/02/2009 Td (adult), adsorbed [...] Information) Functional Status No Impairment. Past Encounters 08/04/2021 Neck Pain Brittany Blood, PT: [address] [place] [address] peña, [facility] [address] [address], Ph. 07/21/2021 Abdominal Pain Carina Ramon RN: [address] [place] [phone], Ph. 07/04/2021 Surveillance of Depot Contraception Done Simone De La Fuente MD: [address] [place] [phone], Ph. 07/04/2021 Neck Pain Brittany Blood, PT: [address] [place] [address] peña, [facility] [address], [place] [address], Ph. History of Present Illness Note: <div><strong>REHAB DISCHARGE SUMMARY</strong></div><p><strong>Therapy Diagnosis</strong>: Cervicalgia</p><p><strong>Number of Sessions</strong>:1</p><p><strong>Summary of Treatment</strong>: Evaluation</p><p><strong>Reason for Discharge</strong>: {{Patient did not return for additional therapy. Patient was placed on hold and did not contact Rehab with further needs or questions. Patient no showed for remaining sessions. Patient reports pain only short term after her seizures and was placed on hold did not return for further treatment.#}}</p><p><strong>Therapy Asse ssment</strong>:Patient symptoms were not able to be addressed due to nature of the symptoms. Taken from 07/04/2021 evaluation: SEEN NO CHARGE: Patient reports pain only immediately post seizure.She has now been seizure free for 30 days. PT discussed and we will hold chart however PT may not bebeneficial if her pain is only present during and immediately after seizures. CHART HELD 30 DAYS </p><p> </p><p>Plan: discharge from therapy services</p><p><strong>Goal Status</strong>:n/a</p><p><strong>Discharge Plan</strong>: Discharge from therapy today.</p><div>
</div> Review of Systems None recorded. Physical Exam None recorded.
--- OUTSIDE RECORDS SUMMARY | 2021-08-26 07:31 | XMS_ITS | Encounter Summary ---
:1985 Author Care Team Providers Name Role Phone James Herzog MD Primary Care Provider [phone] Carina Ramon Unit Assembler [phone] Justino Bashir MD General Surgeon [phone] Chalino Bolanos MD Urologist [phone] Ramonita Caceres PA-C Orthopedic Surgeon [phone] Reason for Visit chronic care management Assessment and Plan Assessment Note This RN Slicing Machine Feeder met with Elodia segura at [facility] to assist patient with [employer]imbursement paperwork and provide patient with a $25.00 gas card from the [facility] ent Care Fund. Janett states, I'm not supposed to be driving right now because of my seizures and I don't trust [facility] to bring me to my appointments at [facility] . This author provided Janett with the $25.00 gas card for her abdominal nerve block procedure on 07/25/21. This author reviewed the [employer] Reimbur[employer] ent paperwork and provided patient with a copy of the completed paperwork for her records. This author made Janett aware that this RN Slicing Machine Feeder faxed the Long Distance Transportation requests to [facility] for proof of her upcoming appointments at [facility] through the remainder of 2020. 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 This author made Janett aware that [facility] need s a copy of Janett's valid drivers license, proof of insurance, and valid registrati on in order to be approved for the program. Janett verbalizes understanding and wi ll leave the copies at Primary Care tomorrow morning after she is able to meet up wit h her friend Nasreen get the requested documentation. This author updated and r yolandaiewed Janett's Care Plan with patient and will send to her Portal. This author pro vided Janett with this RN Slicing Machine Feeder's contact information and en couraged patient to call with any questions or concerns r/t her care coordination ne eds. Janett verbalizes agreement and understanding of her plan of care. This author will fax all required documentation to [facility] when it is received. Carina quintana RN 1. Abdominal pain Discussion Note Goal: Manage my health care need s Status: Active Date Started : 07/21/2021 Barriers: Lack of financial resources Interventions / Plans: Take your medication as prescribed to lion grover your medical conditions Call [facility] at one to two d ays before your [facility] appointments to make them aware of your transportation to your medical appointments for the [employer] Reimbursement program. Call Carina Ramon RN Care Coordinato r at ext [phone] for assistance with long distance transportation requests to ensure you are able to attend all of your medical appointments. Follow your provider?s treatment recomm endations Bring this Care Plan to your next visit or refer to your Care Plan via the patient portal If patient follows this care plan the ex pected outcome will be to stabilize financial resources to ensure you are able to attend your specialty appointments at [facility] Patient educational handouts: No information available. Plan of Care Reminders Provider Appointments Office 20 09/02/2021 Chari Bolanos, 9:20AM ? Hme 20 09/20/2021 Simone irwin MD [...] 07/25/2021 Colonoscopy Information not avai lable Notes: [facility] [place], [place], 5 year f/ u recommended [...] mRNA, LNP-S, PF, 30 mcg/0.3 mL dose ([employer]) 02/05/2021 02/26/2021 Hep B, adolescent or pediatric HPV, quadrivalent 06/20/2007 08/21/2007 01/27/2008 influenza, seasonal, injectable, preserv ative free 08/29/2006 12/02/2010?0.5 mL novel [id number], all formulation s 11/02/2009 Td (adult), adsorbed [...] or with others? with others Notes: Saul sims What is your level of alcohol None [...] Information) Functional Status No Impairment. Past Encounters 07/21/2021 Abdominal Pain Carina Ramon RN: [address] [place] [phone], Ph. 07/04/2021 Surveillance of Depot Contraception Done Simone De La Fuente MD: [address] [place] [address] [place] [address], Ph. 07/04/2021 Neck Pain Brittany Blood, PT: [address] [place] [address] [address], [facility] [address], [place] [address], Ph. History of Present Illness None recorded. Review of Systems None recorded. Physical Exam None recorded.
--- OUTSIDE RECORDS SUMMARY | 2021-08-26 07:31 | XMS_ITS | Encounter Summary ---
:1985 Author Care Team Providers Name Role Phone James Herzog MD Primary Care Provider [phone] Carina Ramon Glass Setter [phone] Justino Bashir MD General Surgeon [phone] Chalino Bolanos MD Urologist [phone] Ramonita Caceres PA-C Orthopedic Surgeon [phone] Reason for Visit ER f/u, Seizures Assessment and Plan 1. 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 new onset activity x2. neurology referral fo r evaluaution and management, on topamax 50mg po bid, was on already for lyman, increased after seizure occurred. advised regarding advise not to drive, other activities an d safety while awaiting workup and with active seizures having occurred. has bee n having increased stressors with physical issues lately. f/u after neurology evalu ation to help implement plan of care. Discussion Note: None recorded.Patient educational handouts: No [...] verbal review Medications Administered None recorded. Vitals Height Weight BMI Blood Pressure 5 ft 4.75 in 206 lbs 34.5 kg/m2 106/76 mm[Hg] Results Lab Results None recorded. Allergies Code Code System Name Reaction Severity Onset NKDA ? ? ? Problems Name Status Onset Date Source ? Abdominal Pain Active 03/31/2021 ? Insomnia Active 04/04/2021 ? Asthma Active ? ? Procedures Date Name Performed by ? 07/25/2021 Colonoscopy Information not avai lable Notes: [facility] [place], polyp removed, 5 year [...] mRNA, LNP-S, PF, 30 mcg/0.3 mL dose ([employer]) 02/05/2021 02/26/2021 Hep B, adolescent or pediatric HPV, quadrivalent 06/20/2007 08/21/2007 01/27/2008 influenza, seasonal, injectable, preserv ative free 08/29/2006 12/02/2010?0.5 mL novel [id number], all formulation s 11/02/2009 Td (adult), adsorbed [...] Information) Functional Status No Impairment. Past Encounters 06/02/2021 Seizure Disorder James Herzog MD: [address] [place] [id number], Ph. 05/05/2021 Asthma James Herzog MD: [address] [place] [address], Ph. History of Present Illness ? Seizure Reported By: Patient HPI: Onset/Timing: age/date of on set: , age stopped: 9; patient does not recall the onset age, but re ports a history of seizures,or if medication was taken. Duration: ; carol nt reports her daughter witnessed both seizures, first seizure is o ne hour, the second one was 30 minutes. Context: loss of consciousne ss, delivery via , MRI head; daughter reports seizure act ivity as tremors, patient did not respond when spoken to during seizur e activity. Associated Symptoms: no incontinence, no amnesia, no tongue biting, postictal soreness, postictal fatigue/tiredness, postictal headache, physical trauma from seizure, dizziness, fullness in ears, palpitations Note: Patient was seen at the ER on 05/28, 05/31/2021. Topamax dose was increased to 50 mg one tab twice daily. Patient recalls a history of seizures has a child, is unsure of the onset, seizure activity stopped at age 9. has not had any recalled issue after young age although chart mentions referral/eval w ith dr. franco with evaluation at that time for non epileptiform process. 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 no aura. no notedReview of Systems: ROS as noted in the HPI Review of Systems None recorded. Physical Exam ? Notes: female fatigued nad
--- OUTSIDE RECORDS SUMMARY | 2021-08-26 07:31 | XMS_ITS | Encounter Summary ---
:1985 Author Care Team Providers Name Role Phone James Herzog MD Primary Care Provider [phone] Carina Ramon Elocution Teacher [phone] Justino Bashir MD General Surgeon [phone] Chalino Bolanos MD Urologist [phone] Ramonita Caceres PA-C Orthopedic Surgeon [phone] Reason for Visit Right shoulder problem Assessment and Plan 1. Neck pain 06/13/21: Two weeks of symptoms that started without known injury except for seizure activity. Notes pain in the ante rior shoulder/lateral neck and into her scapula. Denies paresthesias. Exam sugge stive of muscle strain and spasms. Discussed PT, warm moist heat, and gentle stretchi ng. Handout given. Follow up with PCP if not improving. ? physical therapist referra l - Right cervical muscle strain, right shoulder/scapula pain. Discussion Note: None recorded.Patient educational handouts: No information available. Plan of Care Reminders Provider Appointments Office 20 Chari Bolanos MD 09/02/2021 9:20AM ? Hme 20 Simone irwin MD 09/20/2021 1:20PM ? Follow up 20 James Herzog MD 10/31/2021 9:20AM Lab None ? ? recorded. Referral Physical [facility] Therapist Referral 06/13/2021 [facility] Procedures None ? ? recorded. Surgeries None [...] Administered None recorded. Vitals Height Weight BMI 5 ft 4.75 in 203 lbs 7 oz 34.1 kg/m2 Results Lab Results None recorded. Allergies Code Code System Name Reaction Severity Onset NKDA ? ? ? Problems Name Status Onset Date Source ? Abdominal Pain Active 03/31/2021 ? Insomnia Active 04/04/2021 ? Asthma Active ? ? Procedures Date Name Performed by ? 07/25/2021 Colonoscopy Information not avai labant Notes: [facility] [place], polyp removed, 5 [...] mRNA, LNP-S, PF, 30 mcg/0.3 mL dose ([employer]) 02/05/2021 02/26/2021 Hep B, adolescent or pediatric HPV, quadrivalent 06/20/2007 08/21/2007 01/27/2008 influenza, seasonal, injectable, preserv ative free 08/29/2006 12/02/2010?0.5 mL novel [id number], all formulation s 11/02/2009 Td (adult), adsorbed [...] Information) Functional Status No Impairment. Past Encounters 06/13/2021 Neck Pain Suzi Mcleod NP: [address] [place] [address] [place] [address], Ph. 06/02/2021 Seizure Disorder James Herzog MD: [address] [place] [address] [place] [address], Ph. History of Present Illness ? Shoulder Reported By: Patient HPI: Hand Dominance: right. Locat ion: right. Quality: aching, deep, occasional, improving. Sever ity: mild, pain level 3/10. Duration: 16 days. Context: fall. Allevia ting Factors: ; lidocaine patch. Aggravating Factors: ROM, changing cloth es. Associated Symptoms: no weakness, no numbness, no tingling, no sw elling, no redness, no warmth, no ecchymosis, no catching/lock ing, no popping/clicking, no buckling, no grinding, no radiation down arm, no change in bowel/bladder habits, instability. Previous Surger y: none. Prior Imaging: none. Previous Injections: none. Previous P T: none. Work Related: no. Working: no Note: JL patient here for evaluation of her right shoulder. Since she has had seizures she has had right shoulder pain rubbing under shoulder blade, does not recall specific injury. Had tried heating pad and tylenol with no relief. Will not take ibuprofen she because she doesnt like how it makes her f eel.<div>Patient reports improved level of pain, range of motion causes pain. </div><div>
</div>Review of Systems: ROS as noted in the HPI Review of Systems None recorded. Physical Exam ? Notes: Pleasant and cooperative fem supa in no acute distress. Alert and oriented x4. Skin pink, warm, and dry. Fu ll cervical ROM. Tenderness with rotation to the left. Tender to palpation of the right SCM's and the right scapula region. Full ROM bilateral shoulders . Mild pain with extension of the right shoulder. Pulses and sensation intact BUE's. Hand grasps 5/5 bilaterally. Affect appropriate.
--- OUTSIDE RECORDS SUMMARY | 2021-08-26 07:31 | XMS_ITS | Encounter Summary ---
:1985 Author Care Team Providers Name Role Phone James Herzog MD Primary Care Provider [phone] Carina Ramon Performance Manager [phone] Justino Bashir MD General Surgeon [phone] Chalino Bolanos MD Urologist [phone] Ramonita Caceres PA-C Orthopedic Surgeon [phone] Reason for Visit Contraception Assessment and Plan 1. Surveillance of depot contrac eption done She should return in 11 weeks for her next injection. She needs her HME at that visit. 10 min visit ? medroxyprogesterone 150 mg /mL intramuscular suspension Discussion Note: None recorded.Patient educational handouts: No [...] needed Notes: 06/13/21 verbal review Medications Administered Name Date ? ? medroxyprogesterone 150 mg/mL intramuscular suspen jeff [id number] Inject 1 mL every 3 months by intramuscular route. Notes: Administered by Laila Therri en [employer]. 1.5 inch 22 G. Patient tolerated well. Bandaid applied. Vitals Height Blood Pressure 5 ft 4.75 in 112/72 mm[Hg] Results Lab Results None recorded. Allergies Code Code System Name Reaction Severity Onset NKDA ? ? ? Problems Name Status Onset Date Source ? Abdominal Pain Active 03/31/2021 ? Insomnia Active 04/04/2021 ? Asthma Active ? ? Procedures Date Name Performed by ? 07/25/2021 Colonoscopy Information not avai lable Notes[place] [facility] [place], 5 year f/ u recommended [...] mRNA, LNP-S, PF, 30 mcg/0.3 mL dose ([employer]) 02/05/2021 02/26/2021 Hep B, adolescent or pediatric HPV, quadrivalent 06/20/2007 08/21/2007 01/27/2008 influenza, seasonal, injectable, preserv ative free 08/29/2006 12/02/2010?0.5 mL novel [id number], all formulation s 11/02/2009 Td (adult), adsorbed [...] Done Simone De La Fuente MD: [address] [facility] [address], [place] [address], Ph. 07/04/2021 Neck Pain Brittany Blood, PT: [address] [facility] [address], [address], [place] [address], Ph. 06/13/2021 Neck Pain Suzi Mcleod CORPORATE SECURITY OFFICER: [address] [facility] [place] [address], Ph. History of Present Illness Note: <p>She has been on DMPA for many years. She continues to do well with it. She denies any bleeding. There is also no pain.</p> Review of Systems None recorded. Physical Exam None recorded.
[2021-08-26] MEDS: Albuterol HFA 18 GM 200 PUFF INH IH (12:05)
[2021-08-26] MEDS: Inhaler, Assist Device 1 EACH MC (12:05)
--- NOTE | 2021-08-29 09:55 | W.PFT ---
Date of service: 08/26/21 Time of Service: 11:16 Pulmonary Function Test Result Requesting Provider Jorge Tang Indications: Asthma, dyspnea on exertion Interpretation Spirometry: There is no airflow limitation. There is no significant bronchodilator response. Impression Normal spirometry Clinical Correlation therefore is recommended.
== END 2021-08-26 07:27 | disposition home or self-care (01) ==
LOC: RT 07:28
PROVIDERS: PCP Family Medicine; Visit Provider Physician Assistant
DX: J45.909 Unspecified asthma, uncomplicated (principal); Z82.5 Family history of asthma and other chronic lower respiratory diseases; R06.09 Other forms of dyspnea
CPT/HCPCS: 94060

== ENCOUNTER → 2022-06-15 03:05 | Outpatient (CLI) | payer MEDICAID, SELFPAY ==
--- NOTE | 2022-06-15 08:30 | DI.US_ITS ---
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 TECHNIQUE: Ultrasound thyroid performed using standard protocol. COMPARISON: No exams were available for comparison FINDINGS: ISTHMUS: 2 mm RIGHT LOBE: Size: 4.3 x 1.4 x 1.3 cm Echogenicity: Normal. Vascularity: Normal. Nodules: None. LEFT LOBE: Size: 4.4 x 1.4 x 1.8 cm Echogenicity: Normal. Vascularity: Normal. Nodules: None. OTHER FINDINGS: None. IMPRESSION: Normal sonographic appearance of the thyroid gland. DATA REPOSITORY:
== END ==
PROVIDERS: PCP Family Medicine; Visit Provider Physician Assistant
DX: E01.0 Iodine-deficiency related diffuse (endemic) goiter (principal)
CPT/HCPCS: 76536

== ENCOUNTER 2022-12-05 01:06 | Outpatient (CLI) | payer MEDICAID, SELFPAY ==
--- NOTE | 2022-12-05 11:00 | DI.RAD_ITS ---
Exam(s) RF MODIFIED SPEECH BA SWALLOW TECHNIQUE: Modified barium swallow was performed in conjunction with speech pathology. CONTRAST MATERIAL: Oral barium contrast was administered. COMPARISON: No exams were available for comparison FINDINGS: Thin liquid, puree, and barium on a cracker were administered. Barium tablet also administered. The barium tablet passed into the GE junction without delay. Please see speech pathology report for det ails. IMPRESSION: No evidence of aspiration or penetration. RADIATION DOSE DELIVERED: raúl Lynne=5.96 mGy
[2022-12-05] MEDS: Barium Sulfate Oral Paste 40% W/V 230 ML TUBE PO (11:03)
[2022-12-05] MEDS: Barium Sulfate 81% w/w for Oral Suspension 148 GM BTL PO (11:03)
[2022-12-05] MEDS: Barium Sulfate 40% W/V 240 ML BTL PO (11:04)
[2022-12-05] MEDS: Barium Sulfate 700 MG TAB PO (11:05)
--- NOTE | 2022-12-05 11:19 | ST.MBS_ITS ---
Date of Service Date of service: 12/05/22 Time of Service: 10:30 Modified Barium Swallow Study Findings: Video fluoroscopic Swallowing Evaluation (VFSE) / Modified Barium Swallow Study (MBSS) Speech Language Pathology Report Patient referred for VFSE/MBSS from MAHIN Blackwell given reported dysphagia and persistent throat pain. HPI & Patient report of function: 36 y/o F seen for persistent throat pain / chronic pharyngitis with xerostomia, (? medication related) by Jorge Sky.? Also recently noted with tonsil stones. Flexible laryngoscopy without other abnormal findings such as masses or candidiasis. Speech therapy referral placed given above concerns and patient report of daily pharyngeal stasis and occasional aspiration and question of pill pharyngitis. [employer] impressions included suspected mild dysphagia with pharyngeal residue and suspected impact of chronic GERD, therefore MBSS was recommended. Subjective: Janett arrived on time for today's swallow study. Appears well, pleasant, she reports minimal updates since our initial visit together. She reports there was a delay in scheduling her MBSS due to transportation limitations. IMPRESSIONS: Mild pharyngeal-esophageal dysphagia characterized by mild reduced anterior hyoid movement and mild reduced epiglottic inversion. No aspiration or penetration into larynx observed. Airway protection is intact. Liquids, purees and solids passed through pharynx and UES with only mild vallecular residue across textures, suspect due to delayed, slightly reduced epiglottic inversion. Consistent with reflux history and reported symptoms, noting appearance of significant posterior CP hypertrophy/CP bar at swallow onset, but degree of distension during height of swallow increases adequately to prevent reduced flow through UES. While no significant pyriform sinus residue or stasis at upper esophageal sphincter was observed, given extent of hypertrophy, at least mild risk of hypopharyngeal stasis and increased risk of airway obstruction is expected with more complex textures such as large bites of meat, etc. Counseled patient to continue to address behavioral/positional reflux management strategies as well as continue to discuss medication management dose/timing factors with PCP or GI team. Patient was counseled that there are medical procedures that exist to reduce UES stricture, but that potential benefits would need to be discussed with GI and/or ENT. At this time I believe this could be well controlled with compensatory strategies and reflux management, though there is a possibility of residual tension-related dysphagia (possibly resulting from chronic laryngo-pharyngeal reflux). If symptoms worsen even with compensatory strategies and additional reflux/medical management strategies in place, patient could return for additional speech therapy to unload tension. The following safe swallowing/risk management strategies were provided to reduce risk of airway obstruction and aspiration and increase comfort while eating. RECOMMENDATIONS: Diet Texture Recommendation:? IDDSI LEVEL SOLIDS 6-Soft & Bite-Sized Solids LIQUIDS 0-Thin Liquids Please see further details at?www.iddsi.org http://www.iddsi.org/ MEDICATIONS Whole with 0-Thin Liquids Diet texture modification is per patient's preference; please adjust diet textures at patient's discretion & collaboration with care team. Do not alter medications (e.g., cut)? without advice from your MD or pharmacist. Risk Management Strategies:? Behavioral reflux precautions, including upright position during + 90 mins after meals. Small bites, approx [id number] Add moisture to solid foods to improve pharyngeal clearance Small sips, approx 10 mL Alternate solids/liquids as able Multiple swallows per bolus to encourage clearance of pharyngeal stasis/residue Control risk factors for aspiration pneumonia via (a) thorough oral hygiene & (b) maintaining physical mobility as tolerated PLAN: Therapy: no further [employer] services at this time. See impressions above. ----- OBJECTIVE Videofluoroscopic Swallow Evaluation (VFSE/MBSS) was conducted in the lateral and [id number] projection by Speech-Language Pathologist, in collaboration with Radiologist, to evaluate oropharyngeal swallow function. Anatomic view under fluoroscopy: WFL at rest, hypertrophy of CP noted during swallow with intruduction of barium contrast. PO Barium Contrast Trials Oral barium water-soluble contrast was administered as follows: IDDSI Level 0 Varibar thin liquid (40% w/v) IDDSI Level 2 Varibar nectar thick/mildly thick liquid (40% w/v) IDDSI Level 4 Varibar pudding/pureed/extremely thick (40% w/v) IDDSI Level 7 Regular Solid: 1/2 lelo cracker coated in 3 mL Varibar pudding 13 mm barium tablet taken with Thin Liquids. MBSImP Component Scores: COMPONENT Scale SCORE 1 Lip closure (0-4) 0 Resulted in no labial escape 2 Hold Position (0-3) 0 Maintained a cohesive bolus between tongue to palatal seal 3 Bolus Preparation (0-4) 0 Resulted in timely and efficient chewing and mashi ng 4 Bolus Transport (0-4) 0 Was with brisk tongue motion 5 Oral Residue (0-4) 1 Was a trace, lining oral structures 6 Swallow Initiation (0-4) 3I Occurred when the bolus head was in the pyriform sinuses 7 Soft Palate Elevation (0-4) 0 Resulted in no bolus between soft palate and t he pharyngeal wall 8 Laryngeal Elevation (0-3) 0 Demonstrated complete superior movement of thyro id cartilage with complete approximation of arytenoids to epiglottic petiole 9 Anterior Hyoid Motion (0-2) 1 Demonstrated partial anterior movement 10 Epiglottic Movement (0-2) 1 Resulted in partial inversion 11 Laryngeal Closure (0-2) 0 Was complete with no air or contrast in laryngeal vestibule 12 Pharyngeal Stripping Wave (0-2) 0 Was present and complete 13 Pharyngeal Contraction (0-3) 0 Was complete 14 PES Opening (0-3) 0 Was completely distended and complete duration with no obstruction of flow 15 Tongue Base Retraction (0-4) 0 Allowed no contrast between the tongue base and posterior pharyngeal wall 16 Pharyngeal Residue (0-4) 1 Showed a trace within or on pharyngeal structure s 17 Esophageal Clearance (0-4) 2 Resulted in esophageal retention with retrogra de flow below pharyngoesophageal segment Results: COMPONENT Scale SCORE 1 Oral Score (0-18) 3 2 Pharyngeal Score (0-29) 2 3 Esophageal Score (0-4) 2 Dysphagia Outcome and Severity Scale: COMPONENT l Scale SCORE 1 LEVEL (1-7) 6 Full PO: Normal Diet - Within functional limits/modified independence Penetration-Aspiration Scale: COMPONENT Scale SCORE 1 Thin liquid (1-8) 1 Contrast did not enter the airway 2 [place] thick (1-8) 1 Contrast did not enter the airway 3 Honey thick (1-8) NA 4 Pudding thick (1-8) 1 Contrast did not enter the airway 5 Cookie (1-8) 1 Contrast did not enter the airway Trialed Compensatory Strategies & Outcome: Maneuvers Successful (+) Unsuccessful (-) Postures Successful (+) Unsuccessful (-) 3 second Preparatory Set? ? +/- Chin Tuck Posture? ? Cough? ? Posterior Head tilt? Reflexive? Cued? ? D ? ? Throat Clear? ? Head Tilt to? Reflexive? Left? Cued? Right? ? Saliva swallow? ? + Head Turn/Rotate to? ? Supraglottic Swallow? Left? ? Super-supraglottic Swallow? Right? ? Effortful swallow - Bolus Modifications Successful (+) Unsuccessful (-) Delivery/Alternating Consistencies ? Follow with Liquid Wash ? Follow with Solid Bolus? Delivery/Via Straw? ? Reduced Volume? ? +/- Reduced Rate of Intake? ? +/- Increased Viscosity? ? +/- Other:?? ? Thank you for allowing us to take part in this patient's care. Please feel free to contact the [facility] Speech Language Pathology Department with any questions/concerns. Coding CPT Codes MOTION FLUOROSCOPY/SWALLOW - [id number] ([id number])
== END 2022-12-05 01:26 ==
PROVIDERS: PCP Family Medicine; Visit Provider Physician Assistant
DX: R13.14 Dysphagia, pharyngoesophageal phase (principal)
CPT/HCPCS: 92611; 74221